=== PATIENT | female | born 2000 | race Caucasian/White ===

== ENCOUNTER 2022-01-04 20:58 | Emergency (ER) | payer MEDICAID, SELFPAY ==
[2022-01-04 21:22] VITALS: BP 120/60; PULSE 134; RESP 16; TEMP 37.2; O2SAT 97; BMI 20.5
--- NOTE | 2022-01-04 21:31 | W.ED.ABDPA2 ---
Documented by User: MERCEDES Rivas 01/05/22 00:33 HPI - Abdominal Pain General: Chief Complaint: Abdominal Pain Stated Complaint: RLQ/ FLANK PAIN Time Seen by Provider: 01/04/22 21:31 History of Present Illness: 21-year-old female comes in today with complaints of right lower quadrant abdominal pain. Patient has been ill since yesterday with pain radiating to her right lower quadrant. Patient has decreased appetite. Patient reports chills. Patient reports vomiting. Patient has no history of abdominal surgeries, has had a tonsillectomy, and history of asthma with albuterol use. Mother reports subjective fever. Patient reports pain improves with holding while movement and letting go blue worsens the pain. Patient's last menstrual cycle was on December 25, and patient denies any sexual activity. Patient denies any routine medications. MD elicited complaint: abdominal pain Pertinent past history: none Pain Consistency: intermittent Location: RLQ Severity: mild Quality: aching Exacerbating factors: movement Relieving factors: other (Holding pressure) Associated Symptoms: Reports chills, fever(s) and vomiting Review of Systems General: Reports: 10 or more systems reviewed and unremarkable except in HPI and below Const: Reports: fever(s) and chills ENMT: Denies: throat pain Card: Denies: chest pain Resp: Denies: dyspnea GI: Reports: abdominal pain and vomiting : Denies: difficulty voiding or vaginal discharge Skin/Breast: Denies: rash Physical Exam Const: COMMON NORMALS: alert HENMT: COMMON NORMALS: normocephalic HEAD & SCALP: normocephalic Neck/C-Spine: COMMON NORMALS: full ROM Resp: COMMON NORMALS: normal respiratory effort and clear to auscultation bilaterally AUSCULTATION: clear to auscultation bilaterally Cardio: COMMON NORMALS: regular rate and regular rhythm RATE: regular rate RHYTHM: regular rhythm GI: COMMON NORMALS: Soft to palpation AUSCULTATION: Yes normoactive bowel sounds PALPATION: Yes Soft to palpation, Yes Tenderness to palpation present (GI) Details: RLQ, No Guarding due to palpation present (GI) and No Rebound tenderness present : COMMON NORMALS: Yes no CVA tenderness BLADDER/KIDNEY EXAM: Yes no CVA tenderness Back/Pelvis: COMMON NORMALS: no CVA tenderness Extremity: COMMON NORMALS: full ROM and no pedal edema Neuro: SENSORIUM/ORIENTATION: Yes alert Psych: COMMON NORMALS: cooperative Skin: COMMON NORMALS: no rashes or lesions noted GENERAL SKIN EXAM: no rashes or lesions noted Course Vital Signs: Vital signs: Vital Signs Temperature 99.0 F 01/04/22 21:22 Pulse Rate 115 H 01/04/22 23:50 Respiratory Rate 16 01/04/22 23:50 Blood Pressure 144/85 01/04/22 23:50 Pulse Oximetry 95 01/04/22 23:50 MDM - Abdominal Pain Medical Decision Making 21-year-old female comes in today with complaints of right lower quadrant abdominal pain for the last 2 days. Patient did report some nausea and vomiting with the last episode this morning. Patient has had poor appetite throughout the day. Patient appears mildly unwell but not toxic. Abdomen is soft with some right lower quadrant abdominal tenderness, no guarding, no rebound tenderness. Differential diagnosis includes but not limited to appendicitis, gastroenteritis, mesenteric adenitis, ovarian cyst. Laboratory values noted potassium 3.1, sodium of 135, CBC unremarkable, urinalysis had white blood cells red blood cells but with significant amount of skin cells. CT of the abdomen pelvis noted no obvious appendicitis, prominent amount of mesenteric lymph nodes suggesting mesenteric lymphadenitis. I believe the patient probably has mesenteric adenitis and may be a mild urinary tract infection. Patient was given 1 g of Rocephin IV to cover urinary tract infection, encourage clear liquid diet and increasing activity as tolerated. Patient reported understanding along with parent. Lab Data : 01/04/22 21:43 01/04/22 21:43 Labs/Radiology: Radiology Impressions Abdomen/Pelvis CT 01/04/22 22:36 IMPRESSION: 1. The appendix is obscured. There is no secondary sign appendicitis. 2. Numerous mildly prominent mesenteric lymph nodes. This finding may be nonpathologic or could be related to mesenteric adenitis. Laboratory Results WBC 8.5 10^3/uL (4.5-13.0) 01/04/22 21:43 RBC 4.48 10^6/uL (4.1-5.3) 01/04/22 21:43 Hgb 13.4 g/dL (11.5-15.3) 01/04/22 21:43 Hct 40.0 % (37.0-47.0) 01/04/22 21:43 MCV 89.3 fl (81-99) 01/04/22 21:43 MCH 29.9 pg (28.0-34.0) 01/04/22 21:43 MCHC 33.5 g/dL (30.0-36.0) 01/04/22 21:43 RDW 13.6 % (12.1-15.1) 01/04/22 21:43 Plt Count 240 10^3/cmm (130-400) 01/04/22 21:43 MPV 10.3 fL (7.4-10.4) 01/04/22 21:43 Neut % (Auto) 73.6 % 01/04/22 21:43 Lymph % (Auto) 12.2 % 01/04/22 21:43 [place] % (Auto) 9.1 % 01/04/22 21:43 Eos % (Auto) 4.3 % 01/04/22 21:43 Baso % (Auto) 0.4 % 01/04/22 21:43 Neut # (Auto) 6.29 10^3/uL (1.8-8.0) 01/04/22 21:43 Lymph # (Auto) 1.0 10^3/uL (1.5-6.5) L 01/04/22 21:43 [place] # (Auto) 0.8 10^3/uL (0.2-0.9) 01/04/22 21:43 Eos # (Auto) 0.4 10^3/uL (0.0-0.8) 01/04/22 21:43 Baso # (Auto) 0.0 10^3/uL (0.0-0.1) 01/04/22 21:43 Nucleated RBC % (auto) 0 % 01/04/22 21:43 Nucleated RBCs # 0.0 /100WBC 01/04/22 21:43 Sodium 135 mmol/L (136-145) L 01/04/22 21:43 Potassium 3.1 mmol/L (3.5-5.1) L 01/04/22 21:43 Chloride 103 mmol/L (98-107) 01/04/22 21:43 Carbon Dioxide 19 mmol/L (22-29) L 01/04/22 21:43 Anion Gap 16.1 (5-19) 01/04/22 21:43 BUN 10 mg/dL (6-20) 01/04/22 21:43 Creatinine 0.7 mg/dL (0.5-0.9) 01/04/22 21:43 GFR Calculation 107.8 mL/min (90-130) 01/04/22 21:43 Glucose 105 mg/dL (65-115) 01/04/22 21:43 Calculated Osmolality 279 mOsm/kg (285-295) L 01/04/22 21:43 Calcium 9.3 mg/dL (8.5-10.5) 01/04/22 21:43 Total Bilirubin 0.4 mg/dL (0.15-1.2) 01/04/22 21:43 AST 14 U/L (0-32) 01/04/22 21:43 ALT 8 U/L (0-33) 01/04/22 21:43 Alkaline Phosphatase 64 IU/L (35-105) 01/04/22 21:43 Total Protein 7.1 g/dL (6.6-8.7) 01/04/22 21:43 Albumin 4.5 g/dL (3.5-5.2) 01/04/22 21:43 Globulin 2.6 g/dL (1.3-4.6) 01/04/22 21:43 Lipase 18 U/L (13-60) 01/04/22 21:43 HCG, Qual Negative (Negative) 01/04/22 21:43 Urine Color Yellow (Yellow) 01/04/22 23:11 Urine Appearance Sl cloudy (CLEAR) A 01/04/22 23:11 Urine pH 5 (5-7) 01/04/22 23:11 Ur Specific [place] 1.010 (1.005-1.030) 01/04/22 23:11 Urine Protein Neg (Negative) 01/04/22 23:11 Urine Glucose (UA) Norm (Normal) 01/04/22 23:11 Urine Ketones 3+ (Negative) H 01/04/22 23:11 Urine Blood Neg (Negative) 01/04/22 23:11 Urine Nitrate Negative (Negative) 01/04/22 23:11 Urine Bilirubin Neg (Negative) 01/04/22 23:11 Urine Urobilinogen Norm mg/dL (Negative) 01/04/22 23:11 Ur Leukocyte Esterase 1+ (Negative) H 01/04/22 23:11 Urine RBC 0-4 /hpf (0-2) H 01/04/22 23:11 Urine WBC 25-40 /hpf (0-5) H 01/04/22 23:11 Ur Squamous Epith Cells 15-25 /hpf (0-5) H 01/04/22 23:11 Amorphous Sediment Not Reportable 01/04/22 23:11 Urine Bacteria 2+ /hpf (NONE) H 01/04/22 23:11 Discharge Plan Discharge Patient Disposition: Home Clinical Impression: Acute mesenteric adenitis UTI (urinary tract infection) Qualifiers: Urinary tract infection type: acute cystitis Hematuria presence: without hematuria Qualified Code(s): N30.00 - Acute cystitis without hematuria Condition: Stable Discharge Orders: Discharge ED (Routine); Ordered 01/05/22 Ordered By: Antwon Mckoy Discharge Diet: Usual diet Discharge Activity: Increase activity as tolerated Patient Instructions: Mesenteric Adenitis (ED) Activity Restrictions/Additional Instructions: Encourage plenty of fluids. Use acetaminophen or ibuprofen to help with pain. Light activity. Monitor for worsening symptoms such as a high fever greater than 100.4, uncontrolled pain, blood in vomit or stool. Most often mesenteric adenitis will run its course within 1 week with improving pain and symptoms over that time period. Follow-up with primary care in 2 to 3 days. Return to emergency department for worsening symptoms or new concerns. Coding Level of Care Code ED Securities Research Analyst for Chg Fwd Exam Comprehensive Documented by User: Contreras Wan DO 01/05/22 01:21 HPI - Abdominal Pain General: Chief Complaint: Abdominal Pain Stated Complaint: RLQ/ FLANK PAIN Time Seen by Provider: 01/04/22 21:31 Course Vital Signs: Vital signs: Vital Signs Temperature 99.0 F 01/04/22 21:22 Pulse Rate 115 H 01/04/22 23:50 Respiratory Rate 16 01/04/22 23:50 Blood Pressure 144/85 01/04/22 23:50 Pulse Oximetry 95 01/04/22 23:50 MDM - Abdominal Pain Medical Decision Making 21-year-old female comes in today with complaints of right lower quadrant abdominal pain for the last 2 days. Patient did report some nausea and vomiting with the last episode this morning. Patient has had poor appetite throughout the day. Patient appears mildly unwell but not toxic. Abdomen is soft with some right lower quadrant abdominal tenderness, no guarding, no rebound tenderness. Differential diagnosis includes but not limited to appendicitis, gastroenteritis, mesenteric adenitis, ovarian cyst. Laboratory values noted potassium 3.1, sodium of 135, CBC unremarkable, urinalysis had white blood cells red blood cells but with significant amount of skin cells. CT of the abdomen pelvis noted no obvious appendicitis, prominent amount of mesenteric lymph nodes suggesting mesenteric lymphadenitis. I believe the patient probably has mesenteric adenitis and may be a mild urinary tract infection. Patient was given 1 g of Rocephin IV to cover urinary tract infection, encourage clear liquid diet and increasing activity as tolerated. Patient reported understanding along with parent. This patient was originally seen by MERCEDES Andino.? I agree with his history, evaluation, and treatment. Lab Data : 01/04/22 21:43 01/04/22 21:43 Labs/Radiology: Radiology Impressions Abdomen/Pelvis CT 01/04/22 22:36 IMPRESSION: 1. The appendix is obscured. There is no secondary sign appendicitis. 2. Numerous mildly prominent mesenteric lymph nodes. This finding may be nonpathologic or could be related to mesenteric adenitis. Laboratory Results WBC 8.5 10^3/uL (4.5-13.0) 01/04/22 21:43 RBC 4.48 10^6/uL (4.1-5.3) 01/04/22 21:43 Hgb 13.4 g/dL (11.5-15.3) 01/04/22 21:43 Hct 40.0 % (37.0-47.0) 01/04/22 21:43 MCV 89.3 fl (81-99) 01/04/22 21:43 MCH 29.9 pg (28.0-34.0) 01/04/22 21:43 MCHC 33.5 g/dL (30.0-36.0) 01/04/22 21:43 RDW 13.6 % (12.1-15.1) 01/04/22 21:43 Plt Count 240 10^3/cmm (130-400) 01/04/22 21:43 MPV 10.3 fL (7.4-10.4) 01/04/22 21:43 Neut % (Auto) 73.6 % 01/04/22 21:43 Lymph % (Auto) 12.2 % 01/04/22 21:43 [place] % (Auto) 9.1 % 01/04/22 21:43 Eos % (Auto) 4.3 % 01/04/22 21:43 Baso % (Auto) 0.4 % 01/04/22 21:43 Neut # (Auto) 6.29 10^3/uL (1.8-8.0) 01/04/22 21:43 Lymph # (Auto) 1.0 10^3/uL (1.5-6.5) L 01/04/22 21:43 [place] # (Auto) 0.8 10^3/uL (0.2-0.9) 01/04/22 21:43 Eos # (Auto) 0.4 10^3/uL (0.0-0.8) 01/04/22 21:43 Baso # (Auto) 0.0 10^3/uL (0.0-0.1) 01/04/22 21:43 Nucleated RBC % (auto) 0 % 01/04/22 21:43 Nucleated RBCs # 0.0 /100WBC 01/04/22 21:43 Sodium 135 mmol/L (136-145) L 01/04/22 21:43 Potassium 3.1 mmol/L (3.5-5.1) L 01/04/22 21:43 Chloride 103 mmol/L (98-107) 01/04/22 21:43 Carbon Dioxide 19 mmol/L (22-29) L 01/04/22 21:43 Anion Gap 16.1 (5-19) 01/04/22 21:43 BUN 10 mg/dL (6-20) 01/04/22 21:43 Creatinine 0.7 mg/dL (0.5-0.9) 01/04/22 21:43 GFR Calculation 107.8 mL/min (90-130) 01/04/22 21:43 Glucose 105 mg/dL (65-115) 01/04/22 21:43 Calculated Osmolality 279 mOsm/kg (285-295) L 01/04/22 21:43 Calcium 9.3 mg/dL (8.5-10.5) 01/04/22 21:43 Total Bilirubin 0.4 mg/dL (0.15-1.2) 01/04/22 21:43 AST 14 U/L (0-32) 01/04/22 21:43 ALT 8 U/L (0-33) 01/04/22 21:43 Alkaline Phosphatase 64 IU/L (35-105) 01/04/22 21:43 Total Protein 7.1 g/dL (6.6-8.7) 01/04/22 21:43 Albumin 4.5 g/dL (3.5-5.2) 01/04/22 21:43 Globulin 2.6 g/dL (1.3-4.6) 01/04/22 21:43 Lipase 18 U/L (13-60) 01/04/22 21:43 HCG, Qual Negative (Negative) 01/04/22 21:43 Urine Color Yellow (Yellow) 01/04/22 23:11 Urine Appearance Sl cloudy (CLEAR) A 01/04/22 23:11 Urine pH 5 (5-7) 01/04/22 23:11 Ur Specific [place] 1.010 (1.005-1.030) 01/04/22 23:11 Urine Protein Neg (Negative) 01/04/22 23:11 Urine Glucose (UA) Norm (Normal) 01/04/22 23:11 Urine Ketones 3+ (Negative) H 01/04/22 23:11 Urine Blood Neg (Negative) 01/04/22 23:11 Urine Nitrate Negative (Negative) 01/04/22 23:11 Urine Bilirubin Neg (Negative) 01/04/22 23:11 Urine Urobilinogen Norm mg/dL (Negative) 01/04/22 23:11 Ur Leukocyte Esterase 1+ (Negative) H 01/04/22 23:11 Urine RBC 0-4 /hpf (0-2) H 01/04/22 23:11 Urine WBC 25-40 /hpf (0-5) H 01/04/22 23:11 Ur Squamous Epith Cells 15-25 /hpf (0-5) H 01/04/22 23:11 Amorphous Sediment Not Reportable 01/04/22 23:11 Urine Bacteria 2+ /hpf (NONE) H 01/04/22 23:11 Discharge Plan Discharge Patient Disposition: Home Clinical Impression: Acute mesenteric adenitis UTI (urinary tract infection) Qualifiers: Urinary tract infection type: acute cystitis Hematuria presence: without hematuria Qualified Code(s): N30.00 - Acute cystitis without hematuria Condition: Stable Discharge Orders: Discharge ED (Routine); Ordered 01/05/22 Ordered By: Antwon Mckoy Discharge Diet: Usual diet Discharge Activity: Increase activity as tolerated Patient Instructions: Mesenteric Adenitis (ED) Activity Restrictions/Additional Instructions: Encourage plenty of fluids. Use acetaminophen or ibuprofen to help with pain. Light activity. Monitor for worsening symptoms such as a high fever greater than 100.4, uncontrolled pain, blood in vomit or stool. Most often mesenteric adenitis will run its course within 1 week with improving pain and symptoms over that time period. Follow-up with primary care in 2 to 3 days. Return to emergency department for worsening symptoms or new concerns. Coding Level of Care Code ED Securities Research Analyst for [employer] Fwd Exam Comprehensive
[2022-01-04 21:48] LABS: Basophils % 0.4 %; Eosinophils # 0.4 10^3/uL (0.0-0.8); Eosinophils % 4.3 %; Hemoglobin 13.4 g/dL (11.5-15.3); Lymphocytes % 12.2 %; Mean Corpuscular HGB Conc 33.5 g/dL (30.0-36.0); Mean Corpuscular Hemoglobin 29.9 pg (28.0-34.0); Mean Corpuscular Volume 89.3 fl (81-99); Mean Platelet Volume 10.3 fL (7.4-10.4); Monocytes # 0.8 10^3/uL (0.2-0.9); Monocytes % 9.1 %; Neutrophils # 6.29 10^3/uL (1.8-8.0); Neutrophils % 73.6 %; Nucleated Red Blood Cells % 0 %; Platelet Count 240 10^3/cmm (130-400); Red Blood Count 4.48 10^6/uL (4.1-5.3); Red Cell Distribution Width 13.6 % (12.1-15.1); White Blood Count 8.5 10^3/uL (4.5-13.0)
[2022-01-04 22:02] VITALS: RESP 16
[2022-01-04] MEDS: ondansetron 2 mg/ML SDV 2 mL 4 MG IVP (22:02)
[2022-01-04] MEDS: sodium chloride 0.9% 1,000 ML 999 ML IV (22:02)
[2022-01-04] MEDS: morphine 4 mg/mL SDV 1 mL IVP (22:02)
[2022-01-04 22:04] LABS: Alanine Aminotransferase 8 U/L (0-33); Albumin Level 4.5 g/dL (3.5-5.2); Alkaline Phosphatase 64 IU/L (35-105); Anion Gap 16.1 (5-19); Aspartate Amino Transferase 14 U/L (0-32); Blood Urea Nitrogen 10 mg/dL (6-20); Calcium 9.3 mg/dL (8.5-10.5); Carbon Dioxide 19 mmol/L (22-29); Chloride 103 mmol/L (98-107); Globulin 2.6 g/dL (1.3-4.6); Glomerular Filtration Rate 107.8 mL/min (90-130); Glucose 105 mg/dL (65-115); Lipase 18 U/L (13-60); Osmolality Calculated 279 mOsm/kg (285-295); Potassium 3.1 mmol/L (3.5-5.1); Sodium 135 mmol/L (136-145); Total Bilirubin 0.4 mg/dL (0.15-1.2); Total Protein 7.1 g/dL (6.6-8.7)
[2022-01-04 22:23] LABS: HCG, Serum Qual Negative (Negative)
--- NOTE | 2022-01-04 22:36 | CTR_ITS ---
PROCEDURE INFORMATION: Exam: CT Abdomen And Pelvis With Contrast Exam date and time: 01/04/2022 10:58 PM Age: 21 years old Clinical indication: Abdominal pain; Localized; Right lower quadrant (rlq); Patient HX: C/O rlq abd pain x 2 days TECHNIQUE: Imaging protocol: Computed tomography of the abdomen and pelvis with contrast. Radiation optimization: All CT scans at this facility use at least one of these dose optimization techniques: automated exposure control; mA and/or kV adjustment per patient size (includes targeted exams where dose is matched to clinical indication); or iterative reconstruction. Contrast material: OMNI 300; Contrast volume: 75 ml; Contrast route: INTRAVENOUS (IV); COMPARISON: No relevant prior studies available. RADIATION DOSE METRICS: Total DLP (mGy-cm): 982.6 FINDINGS: Lungs: Lung bases are clear. Liver: The liver is normal. Gallbladder and bile ducts: The gallbladder is normal. There is no biliary dilation. Pancreas: The pancreas is unremarkable. Spleen: The spleen is unremarkable. Adrenal glands: The adrenal glands are unremarkable. Kidneys and ureters: The kidneys are unremarkable. No hydronephrosis or stones. No ureteral dilation. Stomach and bowel: The stomach is unremarkable. The small bowel is nondilated. The colon is unremarkable. Appendix: The appendix is obscured. The cecum lies in the deep pelvis. Intraperitoneal space: There is no free air or significant intraperitoneal free fluid. Vasculature: The portal, splenic and superior mesenteric veins are patent. Lymph nodes: There are numerous mildly prominent mesenteric lymph nodes. No retroperitoneal, pelvic or inguinal lymphadenopathy. Urinary bladder: The urinary bladder is unremarkable. Reproductive: The uterus is unremarkable. There is no adnexal mass or large cyst. Bones/joints: Bones are unremarkable. Soft tissues: The abdominal wall is intact. CT/CT abdomen pelvis w con* [id number] IMPRESSION: 1. The appendix is obscured. There is no secondary sign appendicitis. 2. Numerous mildly prominent mesenteric lymph nodes. This finding may be nonpathologic or could be related to mesenteric adenitis.
[2022-01-04] MEDS: iohexol 300 mg/mL 100 mL Btl IV (22:57)
[2022-01-04 23:36] LABS: Add Urine Microscopic? YES; Bilirubin Urine Neg (Negative); Blood Urine Neg (Negative); Glucose Urine UA Norm (Normal); Ketones Urine 3+ (Negative); Leukocyte Esterase Urine 1+ (Negative); Nitrate Urine Negative (Negative); Protein Urine Neg (Negative); Urine Color Yellow (Yellow); Urobilinogen Urine Norm (Negative); pH Urine 5 (5-7)
[2022-01-04 23:41] LABS: Add Urine Culture? No; Bacteria Urine 2+ /hpf; RBC Urine 0-4 /hpf (0-2); Squamous Epithelial Cell Urine 15-25 /hpf (0-5); WBC Urine 25-40 /hpf (0-5)
[2022-01-04] MEDS: ketorolac 30 mg/mL INJ 15 MG IVP (23:48)
[2022-01-04 23:50] VITALS: BP 144/85; PULSE 115; RESP 16; O2SAT 95
[2022-01-05] MEDS: cefTRIAXone 1,000 MG in sodium chloride 0.9% (plus) 50 ML 100 MG IV (01:10)
[2022-01-05 01:56] VITALS: BP 135/78; PULSE 107; RESP 16; O2SAT 96
== END 2022-01-05 02:01 | disposition home or self-care (01) ==
PROVIDERS: Emergency Provider Nurse Practitioner Family
DX: N30.00 Acute cystitis without hematuria (principal); I88.0 Nonspecific mesenteric lymphadenitis
CPT/HCPCS: 74177; 80053; 81001; 83690; 84703; 85025; 96365; 96375; 99284; J0696; J1885; J2270; J2405; J7030; Q9967

== ENCOUNTER 2022-01-06 14:06 | Emergency (ER) | payer MEDICAID, SELFPAY ==
[2022-01-06 14:07] VITALS: BP 141/86; PULSE 99; RESP 14; TEMP 36.9; O2SAT 96; BMI 19.7
--- NOTE | 2022-01-06 14:13 | W.ED.ABDPA2 ---
HPI - Abdominal Pain General: Chief Complaint: Abdominal Pain Stated Complaint: ABD PAIN Time Seen by Provider: 01/06/22 14:12 Source: patient Mode of arrival: EMS History of Present Illness: 21-year-old female presents emergency room complaining of right-sided abdominal pain she was seen within the last 36 hours of mild UTI is also reporting some rectal bleeding since then she also has her period. She had a CT done at that time and a negative test. CT showed mesenteric lymphadenitis otherwise unremarkable. She not had any fever sweats or chills. MD elicited complaint: abdominal pain Pertinent past history: none Onset (ago): day(s) Pain Consistency: intermittent Location: RLQ Severity: moderate Quality: cramping Radiation: none Exacerbating factors: nothing Relieving factors: nothing Associated Symptoms: Reports change in stool character, hematochezia and nausea; Denies anorexia, belching, bloating, change in bowel habits, chills, coffee ground emesis, constipation, GI cramping, diarrhea, dyspepsia, dysuria, excessive flatus, fever(s), heartburn, hematuria, hematemesis, fecal incontinence, loose stools, melena, poor appetite, syncope and vomiting Review of Systems Const: Reports: change in appetite and malaise; Denies: fever(s) or chills Card: Denies: syncope GI: Reports: abdominal pain, nausea, change in stool character and hematochezia; Denies: vomiting, hematemesis, coffee ground emesis, heartburn, diarrhea, constipation, bloating, GI cramping, belching, excessive flatus, fecal incontinence, change in bowel habits or melena : Denies: flank pain, difficulty voiding, dysuria, urinary frequency, urinary urgency, urinary hesitancy or hematuria [facility] ED PFSH: Medical History (Updated 01/14/22 @ 06:03 by Sebastián Luz DO) No significant past medical history Surgical History (Updated 01/14/22 @ 06:03 by Sebastián Luz DO) No significant past surgical history Physical Exam Const: GENERAL APPEARANCE: cooperative and comfortable ORIENTATION/CONSCIOUSNESS: Yes awake, Yes oriented to person, Yes oriented to place and Yes oriented to time HENMT: COMMON NORMALS: normocephalic, atraumatic and hearing grossly normal bilaterally HEAD & SCALP: normocephalic and atraumatic Neck/C-Spine: COMMON NORMALS: no JVD Resp: COMMON NORMALS: normal respiratory effort, No retractions, No use of accessory muscles and clear to auscultation bilaterally AUSCULTATION: clear to auscultation bilaterally Cardio: COMMON NORMALS: no JVD, regular rate, regular rhythm and No murmurs present (Cardio) RATE: regular rate RHYTHM: regular rhythm GI: COMMON NORMALS: No hepatosplenomegaly present AUSCULTATION: Yes normoactive bowel sounds PALPATION: Yes Tenderness to palpation present (GI) (Mild right lower quadrant tenderness with no guarding or rebound), No Guarding due to palpation present (GI) and Yes No hepatosplenomegaly present Extremity: COMMON NORMALS: normal to inspection, capillary refill normal, no clubbing, cyanosis or edema, no calf tenderness and no pedal edema Neuro: SENSORIUM/ORIENTATION: Yes oriented to person, Yes oriented to place and Yes oriented to time Skin: COMMON NORMALS: no rashes or lesions noted GENERAL SKIN EXAM: no rashes or lesions noted Course Vital Signs: Vital signs: Vital Signs Temperature 98 F 01/06/22 17:29 Pulse Rate 71 01/06/22 17:29 Respiratory Rate 18 01/06/22 17:29 Blood Pressure 146/81 01/06/22 17:29 Pulse Oximetry 96 01/06/22 17:29 MDM - Abdominal Pain Medical Decision Making Started on Cipro recheck a CBC with your physician within the next 3 to 4 days to reevaluate hemoglobin of rectal bleeding is worse recheck sooner in the emergency room. Medical Records I reviewed the patient's medical records. Lab Data I reviewed the patient's lab results. : 01/06/22 14:15 01/06/22 14:15 Labs/Radiology: Laboratory Results WBC 9.9 10^3/uL (4.5-13.0) 01/06/22 14:15 RBC 4.48 10^6/uL (4.1-5.3) 01/06/22 14:15 Hgb 13.3 g/dL (11.5-15.3) 01/06/22 14:15 Hct 40.2 % (37.0-47.0) 01/06/22 14:15 MCV 89.7 fl (81-99) 01/06/22 14:15 MCH 29.7 pg (28.0-34.0) 01/06/22 14:15 MCHC 33.1 g/dL (30.0-36.0) 01/06/22 14:15 RDW 13.5 % (12.1-15.1) 01/06/22 14:15 Plt Count 285 10^3/cmm (130-400) 01/06/22 14:15 MPV 10.4 fL (7.4-10.4) 01/06/22 14:15 Neut % (Auto) 69.6 % 01/06/22 14:15 Lymph % (Auto) 14.2 % 01/06/22 14:15 [place] % (Auto) 7.4 % 01/06/22 14:15 Eos % (Auto) 8.4 % 01/06/22 14:15 Baso % (Auto) 0.2 % 01/06/22 14:15 Neut # (Auto) 6.86 10^3/uL (1.8-8.0) 01/06/22 14:15 Lymph # (Auto) 1.4 10^3/uL (1.5-6.5) L 01/06/22 14:15 [place] # (Auto) 0.7 10^3/uL (0.2-0.9) 01/06/22 14:15 Eos # (Auto) 0.8 10^3/uL (0.0-0.8) 01/06/22 14:15 Baso # (Auto) 0.0 10^3/uL (0.0-0.1) 01/06/22 14:15 Nucleated RBC % (auto) 0 % 01/06/22 14:15 Nucleated RBCs # 0.0 /100WBC 01/06/22 14:15 Sodium 137 mmol/L (136-145) 01/06/22 14:15 Potassium 4.1 mmol/L (3.5-5.1) 01/06/22 14:15 Chloride 105 mmol/L (98-107) 01/06/22 14:15 Carbon Dioxide 19 mmol/L (22-29) L 01/06/22 14:15 Anion Gap 17.1 (5-19) 01/06/22 14:15 BUN 7 mg/dL (6-20) 01/06/22 14:15 Creatinine 0.7 mg/dL (0.5-0.9) 01/06/22 14:15 GFR Calculation 107.8 mL/min (90-130) 01/06/22 14:15 Glucose 83 mg/dL (65-115) 01/06/22 14:15 Calculated Osmolality 281 mOsm/kg (285-295) L 01/06/22 14:15 Calcium 9.2 mg/dL (8.5-10.5) 01/06/22 14:15 Total Bilirubin 0.3 mg/dL (0.15-1.2) 01/06/22 14:15 AST 19 U/L (0-32) 01/06/22 14:15 ALT 9 U/L (0-33) 01/06/22 14:15 Alkaline Phosphatase 58 IU/L (35-105) 01/06/22 14:15 Total Protein 6.6 g/dL (6.6-8.7) 01/06/22 14:15 Albumin 4.3 g/dL (3.5-5.2) 01/06/22 14:15 Globulin 2.3 g/dL (1.3-4.6) 01/06/22 14:15 Lipase 21 U/L (13-60) 01/06/22 14:15 Urine Color Yellow (Yellow) 01/06/22 15:15 Urine Appearance Clear (CLEAR) 01/06/22 15:15 Urine pH 5 (5-7) 01/06/22 15:15 Ur Specific [place] 1.015 (1.005-1.030) 01/06/22 15:15 Urine Protein Neg (Negative) 01/06/22 15:15 Urine Glucose (UA) Norm (Normal) 01/06/22 15:15 Urine Ketones 3+ (Negative) H 01/06/22 15:15 Urine Blood 2+ (Negative) H 01/06/22 15:15 Urine Nitrate Negative (Negative) 01/06/22 15:15 Urine Bilirubin Neg (Negative) 01/06/22 15:15 Urine Urobilinogen Norm mg/dL (Negative) 01/06/22 15:15 Ur Leukocyte Esterase Negative (Negative) 01/06/22 15:15 Urine RBC 0-4 /hpf (0-2) H 01/06/22 15:15 Urine WBC Rare /hpf (0-5) 01/06/22 15:15 Ur Squamous Epith Cells Rare /hpf (0-5) 01/06/22 15:15 Amorphous Sediment Not Reportable 01/06/22 15:15 Urine Bacteria Trace /hpf (NONE) 01/06/22 15:15 Urine Mucus Trace /hpf 01/06/22 15:15 Discharge Plan Discharge Patient Disposition: Home Clinical Impression: Colitis, Acute mesenteric adenitis Condition: Stable Prescriptions: New hydrocodone-acetaminophen 5-325 mg tablet 1 tab PO Q6H PRN (Reason: pain) Qty: 12 0RF Zofran 4 mg tablet 4 mg PO Q6H PRN (Reason: nausea and vomiting) Qty: 12 0RF ciprofloxacin HCl 500 mg tablet 500 mg PO BID Qty: 14 0RF Discharge Orders: Discharge ED (Routine); Ordered 01/06/22 Ordered By: Sebastián Luz Discharge Diet: Clear Liquid Discharge Activity: Increase activity as tolerated Patient Instructions: Opioid Safety Activity Restrictions/Additional Instructions: Liquid diet for 24 to 48 hours and advance as tolerated. Follow-up with primary care physician within the next 3 to 4 days to recheck a CBC you should also have a colonoscopy at some point in the next 6 to 8 weeks. Coding Level of Care Code ED Battery Service Technician for Chg Fwd Exam Comprehensive
[2022-01-06 14:25] LABS: Basophils % 0.2 %; Eosinophils # 0.8 10^3/uL (0.0-0.8); Eosinophils % 8.4 %; Hematocrit 40.2 % (37.0-47.0); Hemoglobin 13.3 g/dL (11.5-15.3); Lymphocytes # 1.4 10^3/uL (1.5-6.5); Lymphocytes % 14.2 %; Mean Corpuscular HGB Conc 33.1 g/dL (30.0-36.0); Mean Corpuscular Hemoglobin 29.7 pg (28.0-34.0); Mean Corpuscular Volume 89.7 fl (81-99); Mean Platelet Volume 10.4 fL (7.4-10.4); Monocytes # 0.7 10^3/uL (0.2-0.9); Monocytes % 7.4 %; Neutrophils # 6.86 10^3/uL (1.8-8.0); Neutrophils % 69.6 %; Nucleated Red Blood Cells % 0 %; Platelet Count 285 10^3/cmm (130-400); Red Blood Count 4.48 10^6/uL (4.1-5.3); Red Cell Distribution Width 13.5 % (12.1-15.1); White Blood Count 9.9 10^3/uL (4.5-13.0)
[2022-01-06 14:28] VITALS: RESP 18; O2SAT 97
[2022-01-06] MEDS: morphine 4 mg/mL SDV 1 mL 2 MG IVP (14:28)
[2022-01-06] MEDS: ketorolac 30 mg/mL INJ IVP (14:29)
[2022-01-06] MEDS: ondansetron 2 mg/ML SDV 2 mL 4 MG IVP (14:29)
[2022-01-06] MEDS: lactated ringers 1,000 ML 999 ML IV ×3 (14:33→17:05)
[2022-01-06 14:44] LABS: Alanine Aminotransferase 9 U/L (0-33); Albumin Level 4.3 g/dL (3.5-5.2); Alkaline Phosphatase 58 IU/L (35-105); Blood Urea Nitrogen 7 mg/dL (6-20); Calcium 9.2 mg/dL (8.5-10.5); Carbon Dioxide 19 mmol/L (22-29); Chloride 105 mmol/L (98-107); Globulin 2.3 g/dL (1.3-4.6); Glomerular Filtration Rate 107.8 mL/min (90-130); Glucose 83 mg/dL (65-115); Lipase 21 U/L (13-60); Osmolality Calculated 281 mOsm/kg (285-295); Sodium 137 mmol/L (136-145); Total Bilirubin 0.3 mg/dL (0.15-1.2); Total Protein 6.6 g/dL (6.6-8.7)
[2022-01-06 14:45] LABS: Anion Gap 17.1 (5-19); Aspartate Amino Transferase 19 U/L (0-32); Potassium 4.1 mmol/L (3.5-5.1)
[2022-01-06 15:46] VITALS: BP 113/70; PULSE 80; RESP 16; O2SAT 96
--- NOTE | 2022-01-06 16:17 | PC.NURSE ---
Reports her menstrual cycle is regular & last cycle was 16th. Attempted to straight cath for urine & unable to place cath. Appears to be vaginal bleeding rather than urinary or rectal.
[2022-01-06 16:21] LABS: Urine Appearance Clear (CLEAR); Urine Color Yellow (Yellow); pH Urine 5 (5-7)
[2022-01-06 16:22] LABS: Add Urine Culture? No; Add Urine Microscopic? YES; Bacteria Urine TRACE /hpf; Bilirubin Urine Neg (Negative); Blood Urine 2+ (Negative); Glucose Urine UA Norm (Normal); Ketones Urine 3+ (Negative); Leukocyte Esterase Urine Negative (Negative); Mucus Urine TRACE /hpf; Nitrate Urine Negative (Negative); Protein Urine Neg (Negative); RBC Urine 0-4 /hpf (0-2); Specific Gravity, Urine 1.015 (1.005-1.030); Squamous Epithelial Cell Urine RARE /hpf (0-5); Urobilinogen Urine Norm (Negative); WBC Urine RARE /hpf (0-5)
[2022-01-06 17:26] VITALS: RESP 16
[2022-01-06] MEDS: morphine 4 mg/mL SDV 1 mL IVP (17:26)
[2022-01-06 17:29] VITALS: BP 146/81; PULSE 71; RESP 18; TEMP 36.6; O2SAT 96
== END 2022-01-06 18:18 | disposition home or self-care (01) ==
PROVIDERS: Emergency Provider Family Medicine; PCP Nurse Practitioner Family
DX: K52.9 Noninfective gastroenteritis and colitis, unspecified (principal); I88.0 Nonspecific mesenteric lymphadenitis
CPT/HCPCS: 80053; 81001; 83690; 85025; 96361; 96374; 96375; 96376; 99284; J1885; J2270; J2405

== ENCOUNTER 2022-03-01 20:14 | Emergency (ER) | payer MEDICAID, SELFPAY ==
[2022-03-01 20:21] VITALS: BP 121/79; PULSE 88; RESP 14; TEMP 36.7; O2SAT 99
--- NOTE | 2022-03-01 20:33 | XRR_ITS ---
PROCEDURE INFORMATION: Exam: XR Chest Exam date and time: 03/01/2022 8:50 PM Age: 22 years old Clinical indication: Dyspnea; Additional info: SOB TECHNIQUE: Imaging protocol: XR of the chest. Views: 1 view. COMPARISON: CT abdomen pelvis w con* [id number] 01/04/2022 10:58 PM FINDINGS: Lungs: Unremarkable. No consolidation. Pleural spaces: Unremarkable. No pleural effusion. No pneumothorax. Heart/Mediastinum: Unremarkable. No cardiomegaly. Bones/joints: Mild thoracic curvature. XR/XR chest 1V portable [id number] IMPRESSION: No acute findings.
--- NOTE | 2022-03-01 20:33 | ED_ITS ---
HPI - Animal Bite General: Chief Complaint: Animal Bite Stated Complaint: SNAKE Bite on rt hand Time Seen by Provider: 03/01/22 20:30 Source: patient Mode of arrival: ambulatory Limitations: no limitations History of Present Illness: 22-year-old female states that she is bitten by a small water moccasin roughly an hour before arrival she states that it bit her on the right index finger she had some pain at the finger no swelling or redness. States that she got worked up and had a little dyspnea as well is feeling improved currently no vomiting no diarrhea Associated symptoms: Deny chills, fever(s) or headache(s) Review of Systems Const: Denies: fever(s), chills, body aches or change in appetite Eyes: Denies: blurry vision or eye discomfort ENMT: Denies: throat pain or dental pain Card: Denies: chest pain Resp: Reports: dyspnea GI: Denies: abdominal pain, nausea, vomiting or diarrhea : Denies: dysuria Musc: Reports: extremity pain Skin/Breast: Denies: rash Neuro: Denies: headache(s) Psych: Denies: depression Mitul/Lymph: Denies: easy bruising All/Imm: Denies: urticaria PFSH ED PFSH: Medical History No significant past medical history Surgical History No significant past surgical history Social History Smoking and tobacco status: current every day smoker (vapes) Physical Exam Const: COMMON NORMALS: no acute distress, patient oriented x3 and healthy appearing HENMT: COMMON NORMALS: normocephalic and atraumatic HEAD & SCALP: normocephalic and atraumatic Eye: COMMON NORMALS: Equal, round and reactive pupils present and EOMs intact bilaterally PUPIL: Yes Equal, round and reactive pupils present Neck/C-Spine: COMMON NORMALS: full ROM and supple Chest: COMMONS NORMALS: normal inspection of the chest and normal palpation of entire chest wall Resp: COMMON NORMALS: normal respiratory effort, No retractions, No use of accessory muscles and clear to auscultation bilaterally AUSCULTATION: clear to auscultation bilaterally Cardio: COMMON NORMALS: regular rate, regular rhythm and No murmurs present (Cardio) RATE: regular rate RHYTHM: regular rhythm GI: COMMON NORMALS: Normal to inspection, nondistended, normoactive bowel raz nds present, Soft to palpation, non-tender and no masses PALPATION: Yes Soft to palpation Extremity: COMMON NORMALS: normal to inspection and full ROM NARRATIVE EXTREMITY EXAM: Patient does have some pain to her right index finger and not able to see any puncture wound or swelling no redness or streaking at this time Neuro: COMMON NORMALS: patient oriented x3, moves all extremities and no focal motor deficits Psych: COMMON NORMALS: mental status grossly normal, Normal thought process present and cooperative THOUGHT PROCESS: Normal thought process present Skin: COMMON NORMALS: no rashes or lesions noted and no wounds GENERAL SKIN EXAM: no rashes or lesions noted Course Vital Signs: Vital signs: Vital Signs Temperature 98.1 F 03/01/22 20:21 Pulse Rate 88 03/01/22 20:21 Respiratory Rate 14 03/01/22 20:21 Blood Pressure 121/79 03/01/22 20:21 Pulse Oximetry 99 03/01/22 20:21 MDM - Animal Bite Medical Decision Making Patient presents with a index bite to her finger is likely a dry bite and not able to see any puncture wounds and she has no swelling was observed here 2 and half hours after the bite still though swelling blood works normal as well she is stable for discharge follow-up PCP return if worsening she understands agrees to plan. Lab Data : 03/01/22 20:45 03/01/22 20:45 Laboratory Results WBC 9.6 10^3/uL (4.5-13.0) 03/01/22 20:45 RBC 4.39 10^6/uL (4.1-5.3) 03/01/22 20:45 Hgb 13.3 g/dL (11.5-15.3) 03/01/22 20:45 Hct 39.5 % (37.0-47.0) 03/01/22 20:45 MCV 90.0 fl (81-99) 03/01/22 20:45 MCH 30.3 pg (28.0-34.0) 03/01/22 20:45 MCHC 33.7 g/dL (30.0-36.0) 03/01/22 20:45 RDW 13.2 % (12.1-15.1) 03/01/22 20:45 Plt Count 297 10^3/cmm (130-400) 03/01/22 20:45 MPV 10.1 fL (7.4-10.4) 03/01/22 20:45 Neut % (Auto) 47.3 % 03/01/22 20:45 Lymph % (Auto) 33.0 % 03/01/22 20:45 [place] % (Auto) 7.3 % 03/01/22 20:45 Eos % (Auto) 11.7 % 03/01/22 20:45 Baso % (Auto) 0.6 % 03/01/22 20:45 Neut # (Auto) 4.54 10^3/uL (1.8-8.0) 03/01/22 20:45 Lymph # (Auto) 3.2 10^3/uL (1.5-6.5) 03/01/22 20:45 [place] # (Auto) 0.7 10^3/uL (0.2-0.9) 03/01/22 20:45 Eos # (Auto) 1.1 10^3/uL (0.0-0.8) H 03/01/22 20:45 Baso # (Auto) 0.1 10^3/uL (0.0-0.1) 03/01/22 20:45 Nucleated RBC % (auto) 0 % 03/01/22 20:45 Nucleated RBCs # 0.0 /100WBC 03/01/22 20:45 PT 13.80 SECONDS (12.1-14.9) 03/01/22 20:45 INR 1.03 (0.8-1.2) 03/01/22 20:45 Sodium 138 mmol/L (136-145) 03/01/22 20:45 Potassium 3.7 mmol/L (3.5-5.1) 03/01/22 20:45 Chloride 104 mmol/L (98-107) 03/01/22 20:45 Carbon Dioxide 23 mmol/L (22-29) 03/01/22 20:45 Anion Gap 14.7 (5-19) 03/01/22 20:45 BUN 9 mg/dL (6-20) 03/01/22 20:45 Creatinine 0.7 mg/dL (0.5-0.9) 03/01/22 20:45 GFR Calculation 106.7 mL/min (90-130) 03/01/22 20:45 Glucose 85 mg/dL (65-115) 03/01/22 20:45 Calculated Osmolality 284 mOsm/kg (285-295) L 03/01/22 20:45 Calcium 9.5 mg/dL (8.5-10.5) 03/01/22 20:45 Total Bilirubin 0.2 mg/dL (0.15-1.2) 03/01/22 20:45 AST 14 U/L (0-32) 03/01/22 20:45 ALT 7 U/L (0-33) 03/01/22 20:45 Alkaline Phosphatase 58 IU/L (35-105) 03/01/22 20:45 Total Protein 6.9 g/dL (6.6-8.7) 03/01/22 20:45 Albumin 4.5 g/dL (3.5-5.2) 03/01/22 20:45 Globulin 2.4 g/dL (1.3-4.6) 03/01/22 20:45 Discharge Plan Discharge Patient Disposition: Home Clinical Impression: Snake bite Condition: Stable Prescriptions: New Naprosyn 500 mg tablet 500 mg PO BID PRN (Reason: pain) Qty: 20 0RF No Action Primatene Mist 0.125 mg/actuation HFA aerosol inhaler 1 puff inhalation Q4H PRN0RF Rx Instructions: may repeat once after 1 minute; do not exceed 8 inhalations per 24 hrs albuterol sulfate [ProAir HFA] 90 mcg/actuation HFA aerosol inhaler 2 puff inhalation QID PRN (Reason: shortness of breath or wheezing) Qty: 8.5 6RF budesonide-formoterol [Symbicort] 160-4.5 mcg/actuation HFA aerosol inhaler 2 puff inhalation BID Qty: 10.2 6RF montelukast [Singulair] 10 mg tablet 10 mg PO DAILY 30 Days Qty: 30 3RF Zyrtec 10 mg capsule 10 mg PO DAILY 90 Days Qty: 90 3RF Discharge Orders: Discharge ED (Routine); Ordered 03/01/22 Ordered By: Archana Jefferson Referrals: Nubia Timmons NP [Primary Care Provider] - 1-3 days Discharge Diet: Advance as tolerated Discharge Activity: Resume usual activity Patient Instructions: Snake Bite (ED) Coding Level of Care Code ED Optometric Assistant for Chg Fwd Exam Comprehensive
[2022-03-01] MEDS: HYDROcodone-acetaminophen 5-325 mg Tablet 1 TAB PO (20:38)
[2022-03-01 20:56] LABS: Basophils # 0.1 10^3/uL (0.0-0.1); Basophils % 0.6 %; Eosinophils # 1.1 10^3/uL (0.0-0.8); Eosinophils % 11.7 %; Hematocrit 39.5 % (37.0-47.0); Hemoglobin 13.3 g/dL (11.5-15.3); Lymphocytes # 3.2 10^3/uL (1.5-6.5); Mean Corpuscular HGB Conc 33.7 g/dL (30.0-36.0); Mean Corpuscular Hemoglobin 30.3 pg (28.0-34.0); Mean Platelet Volume 10.1 fL (7.4-10.4); Monocytes # 0.7 10^3/uL (0.2-0.9); Monocytes % 7.3 %; Neutrophils # 4.54 10^3/uL (1.8-8.0); Neutrophils % 47.3 %; Nucleated Red Blood Cells % 0 %; Platelet Count 297 10^3/cmm (130-400); Red Blood Count 4.39 10^6/uL (4.1-5.3); Red Cell Distribution Width 13.2 % (12.1-15.1); White Blood Count 9.6 10^3/uL (4.5-13.0)
[2022-03-01 21:08] LABS: INR 1.03 (0.8-1.2)
[2022-03-01 21:12] LABS: Alanine Aminotransferase 7 U/L (0-33); Albumin Level 4.5 g/dL (3.5-5.2); Alkaline Phosphatase 58 IU/L (35-105); Anion Gap 14.7 (5-19); Aspartate Amino Transferase 14 U/L (0-32); Blood Urea Nitrogen 9 mg/dL (6-20); Calcium 9.5 mg/dL (8.5-10.5); Carbon Dioxide 23 mmol/L (22-29); Chloride 104 mmol/L (98-107); Globulin 2.4 g/dL (1.3-4.6); Glomerular Filtration Rate 106.7 mL/min (90-130); Glucose 85 mg/dL (65-115); Osmolality Calculated 284 mOsm/kg (285-295); Potassium 3.7 mmol/L (3.5-5.1); Sodium 138 mmol/L (136-145); Total Bilirubin 0.2 mg/dL (0.15-1.2); Total Protein 6.9 g/dL (6.6-8.7)
[2022-03-01] MEDS: ondansetron 2 mg/ML SDV 2 mL 4 MG IVP (21:39)
[2022-03-01 21:54] VITALS: BP 119/74; PULSE 74; RESP 16; TEMP 36.7; O2SAT 99
== END 2022-03-01 21:56 | disposition home or self-care (01) ==
PROVIDERS: Emergency Provider Emergency Medicine; PCP Nurse Practitioner Family
DX: T63.091A Toxic effect of venom of other snake, accidental (unintentional), initial encounter (principal)
CPT/HCPCS: 71045; 80053; 85025; 85610; 96374; 99283; J2405

== ENCOUNTER 2023-06-20 14:23 | Emergency (ER) | payer OTHER, SELFPAY ==
[2023-06-20 14:36] VITALS: BP 99/70; PULSE 97; RESP 16; TEMP 36.8; O2SAT 97; BMI 22.3
[2023-06-20] MEDS: ondansetron 2 mg/ML SDV 2 mL 4 MG IVP (16:39)
[2023-06-20] MEDS: ketorolac 30 mg/mL INJ 15 MG IVP (16:40)
--- NOTE | 2023-06-20 16:40 | ED_ITS ---
HPI - Abdominal Pain General: Chief Complaint: Abdominal Pain Stated Complaint: constipation Time Seen by Provider: 06/20/23 15:17 History of Present Illness: 23-year-old female presents the emergency department complaining of constipation . She feels bloated and has had intermittent abdominal pain. She took Ex-Lax (2 servings) yesterday. She had a small liquid bowel movement this morning. She is thrown up a few times over the last 4 days and states that she thinks it is poop that she threw up. She denies any history of abdominal surgeries. She denies any dysuria or hematuria. Nothing she can think of makes it better or worse. She does endorse that it is constant. Associated Symptoms: Reports bloating, constipation, GI cramping, diarrhea, nausea and vomiting; Denies chills, dysuria, fever(s), hematochezia, melena and syncope Related Data: Date of Last Menstrual Period: 05/27/23 Review of Systems General: Reports: 10 or more systems reviewed and unremarkable except in HPI and below Const: Denies: fever(s), chills or body aches Eyes: Denies: change in vision ENMT: Denies: throat pain Card: Denies: chest pain, edema or syncope Resp: Denies: dyspnea or productive cough GI: Reports: abdominal pain, nausea, vomiting, diarrhea, constipation, bloating and GI cramping; Denies: pain on defecation, rectal pain, rectal swelling, hematochezia, melena, mucus in stool or steatorrhea : Denies: flank pain, dysuria or urinary frequency Musc: Denies: neck pain, back pain, extremity pain or extremity swelling Skin/Breast: Denies: rash or erythema Neuro: Denies: headache(s), numbness in extremities, weakness in extremities, lack of coordination or difficulty walking PFS ED PFSH: Medical History No significant past medical history Surgical History No significant past surgical history Social History Smoking and tobacco status: current every day smoker (vapes) Female Reproductive History: Date of last menstrual period: 05/27/23 Physical Exam Narrative: EXAM NARRATIVE: Patient is a poor historian. She is laying left lateral decubitus. She does not appear in distress. She was almost asleep when I entered. She appears well-nourished. Const: COMMON NORMALS: well nourished EXAM LIMITATIONS: other limitations (Limited historian); no altered mental status HENMT: COMMON NORMALS: normocephalic, atraumatic and external ears normal HEAD & SCALP: normocephalic and atraumatic EXTERNAL EAR: Yes external ears normal MOUTH: no muffled voice Eye: COMMON NORMALS: EOMs intact bilaterally, conjunctivae normal and no scleral icterus CONJUNCTIVA: Yes conjunctivae normal Neck/C-Spine: COMMON NORMALS: no JVD GENERAL: Yes normal visual inspection and Yes trachea midline Resp: COMMON NORMALS: normal respiratory effort and No use of accessory muscles Cardio: COMMON NORMALS: no JVD, regular rate and regular rhythm RATE: regular rate RHYTHM: regular rhythm GI: COMMON NORMALS: Soft to palpation and non-tender INSPECTION: Yes normal to inspection and No Fluid wave present AUSCULTATION: Yes Hypoactive bowel sounds present PALPATION: Yes Soft to palpation, No Firmness to palpation present (GI), No Tenderness to palpation present (GI), No Guarding due to palpation present (GI), No Rigid due to palpation, No Ascites present, No Rebound tenderness present and Yes Other GI palpation findings present (Negative McBurney's point tenderness, negative heel strike) PERCUSSION: dullness to percussion and no fluid wave Extremity: COMMON NORMALS: normal to inspection Neuro: COMMON NORMALS: moves all extremities, no focal motor deficits and no sensory deficits noted SPEECH: speech normal Psych: COMMON NORMALS: mental status grossly normal, Normal thought process present, cooperative, normal affect and speech normal SPEECH: Yes normal speech THOUGHT PROCESS: Normal thought process present Skin: COMMON NORMALS: no rashes or lesions noted, turgor normal and no jaundice GENERAL SKIN EXAM: no rashes or lesions noted and turgor normal Course Vital Signs: Vital signs: Vital Signs Temperature 98.2 F 06/20/23 14:36 Pulse Rate 97 06/20/23 14:36 Respiratory Rate 16 06/20/23 14:36 Blood Pressure 99/70 06/20/23 14:36 Pulse Oximetry 97 06/20/23 14:36 Oxygen Delivery Me thod Room Air 06/20/23 14:36 MDM - Abdominal Pain Medical Decision Making 23-year-old female with report of 4 days of abdominal pain. Patient believes it is due to constipation. She does have hypoactive bowel sounds and dullness to percussion. She has a restricted affect. No peritoneal signs. Low suspicion for acute abdomen. Will obtain CBC, CMP, UA, UPT. Patient believes that she has thrown up stool. Her abdomen is not tympanitic to percussion nor is it distended. I have a hard time believing that this is a fulminant bowel obstruction. I will obtain an upright KUB to further evaluate stool burden and gas pattern. Update The patient's white blood cell count is 11.5. I went ahead and changed her KUB to a CT scan of the abdomen and pelvis. The CT scan does show some mild mural thickening of the colon suggestive of colitis. No other abnormalities demonstrated. I went back and spoke with the patient and family. Patient was more talkative this time and tells me that she frequently has abdominal pain. She also tells me that she actually had a colonoscopy several years ago. She has not been diagnosed with inflammatory bowel disease, any food allergy, or any specific etiology. She does have similar symptoms to a family member who has IBS but is not diagnosed. CRP returned normal at 3 I explained the colitis diagnosis. I explained the potential causes including infectious,allergic/ autoimmune, other inflammatory, etc. I gave the patient the option of doing a course of antibiotics versus watchful waiting with bland diet. She is having minimal vomiting and diarrhea and does not want to wipe out her gut lorenzo. She has chosen to avoid antibiotics at this time. Therefore, I will go ahead and prescribe Zofran and Bentyl and have her follow-up with PCP Lab Data 06/20/23 16:35 06/20/23 16:35 Labs/Radiology: Radiology Impressions Abdomen/Pelvis CT 06/20/23 17:11 IMPRESSION: 1. Mild mural thickening noted of the colon, suspicious for nonspecific colitis. This finding is new when compared to 01/04/2022. 2. No acute abnormality of the solid organs demonstrated. Laboratory Results WBC 11.47 10^3/uL (3.29-11.43) H 06/20/23 16:35 RBC 4.80 10^6/uL (3.85-5.65) 06/20/23 16:35 Hgb 14.40 g/dL (11.27-16.99) 06/20/23 16:35 Hct 42.7 % (36-47) 06/20/23 16:35 MCV 89.0 fl (85-98) 06/20/23 16:35 MCH 30.0 pg (27-33) 06/20/23 16:35 MCHC 33.7 g/dL (30-55) 06/20/23 16:35 RDW 12.6 % (12.1-15.1) 06/20/23 16:35 Plt Count 319 10^3/cmm (157-399) 06/20/23 16:35 MPV 9.3 fL (7.4-10.4) 06/20/23 16:35 Neut % (Auto) 63.9 % 06/20/23 16:35 Lymph % (Auto) 21.7 % 06/20/23 16:35 [place] % (Auto) 5.8 % 06/20/23 16:35 Eos % (Auto) 8.2 % 06/20/23 16:35 Baso % (Auto) 0.2 % 06/20/23 16:35 Neut # (Auto) 7.34 10^3/uL (1.8-7.7) 06/20/23 16:35 Lymph # (Auto) 2.5 10^3/uL (0.8-4.8) 06/20/23 16:35 [place] # (Auto) 0.7 10^3/uL (0.2-0.9) 06/20/23 16:35 Eos # (Auto) 0.9 10^3/uL (0.0-0.8) H 06/20/23 16:35 Baso # (Auto) 0.0 10^3/uL (0.0-0.1) 06/20/23 16:35 Nucleated RBC % (auto) 0 % 06/20/23 16:35 Nucleated RBCs # 0.0 /100WBC 06/20/23 16:35 Sodium 137 mmol/L (136-145) 06/20/23 16:35 Potassium 4.1 mmol/L (3.5-5.1) 06/20/23 16:35 Chloride 102 mmol/L (98-107) 06/20/23 16:35 Carbon Dioxide 25 mmol/L (22-29) 06/20/23 16:35 Anion Gap 14.1 (5-19) 06/20/23 16:35 BUN 9 mg/dL (6-20) 06/20/23 16:35 Creatinine 0.7 mg/dL (0.5-0.9) 06/20/23 16:35 GFR Calculation 105.6 mL/min (90-130) 06/20/23 16:35 Glucose 94 mg/dL (65-115) 06/20/23 16:35 Calculated Osmolality 282 mOsm/kg (285-295) L 06/20/23 16:35 Calcium 9.3 mg/dL (8.5-10.5) 06/20/23 16:35 Total Bilirubin 0.3 mg/dL (0.15-1.2) 06/20/23 16:35 AST 14 U/L (0-32) 06/20/23 16:35 ALT 8 U/L (0-33) 06/20/23 16:35 Alkaline Phosphatase 65 U/L (35-105) 06/20/23 16:35 C-Reactive Protein 3.0 mg/L (0.0-4.9) 06/20/23 16:35 Total Protein 7.0 g/dL (6.6-8.7) 06/20/23 16:35 Albumin 4.7 g/dL (3.5-5.2) 06/20/23 16:35 Globulin 2.3 g/dL (1.3-4.6) 06/20/23 16:35 HCG, Qual Negative (Negative) 06/20/23 16:40 Urine Color Straw (Yellow) 06/20/23 16:40 Urine Appearance Clear (CLEAR) 06/20/23 16:40 Urine pH 8 (5-7) H 06/20/23 16:40 Ur Specific [place] 1.005 (1.005-1.030) 06/20/23 16:40 Urine Protein Neg (Negative) 06/20/23 16:40 Urine Glucose (UA) Norm (Normal) 06/20/23 16:40 Urine Ketones Negative (Negative) 06/20/23 16:40 Urine Blood Neg (Negative) 06/20/23 16:40 Urine Nitrate Negative (Negative) 06/20/23 16:40 Urine Bilirubin Neg (Negative) 06/20/23 16:40 Prot Sulfosalicylic Acd Negative (Negative) 06/20/23 16:40 Urine Urobilinogen Norm mg/dL (Negative) 06/20/23 16:40 Ur Leukocyte Esterase 1+ (Negative) H 06/20/23 16:40 Urine RBC None /hpf (0-2) 06/20/23 16:40 Urine WBC 5-10 /hpf (0-5) H 06/20/23 16:40 Ur Squamous Epith Cells 5-10 /hpf (0-5) H 06/20/23 16:40 Amorphous Sediment Not Reportable 06/20/23 16:40 Urine Bacteria Trace /hpf (NONE) 06/20/23 16:40 Urine Mucus 1+ /hpf 06/20/23 16:40 Discharge Plan Discharge Patient Disposition: Home Clinical Impression: Abdominal pain, recurrent, Colitis Condition: Stable Prescriptions: New dicyclomine 20 mg tablet 20 mg PO TID Qty: 14 0RF ondansetron 4 mg tablet,disintegrating 4 mg PO Q8H PRN (Reason: nausea and vomiting) 5 Days Qty: 14 0RF No Action albuterol sulfate [ProAir HFA] 90 mcg/actuation HFA aerosol inhaler 2 puff inhalation QID PRN (Reason: shortness of breath or wheezing) Qty: 8.5 6RF venlafaxine 75 mg capsule,extended release 24hr 75 mg PO DAILY Discharge Orders: Discharge ED (Routine); Ordered 06/20/23 Ordered By: Alejandro Maravilla Referrals: Nubia Timmons NP [Primary Care Provider] - 4-7 days (Follow-up nonspecific colitis, recurrent abdominal pain) Patient Instructions: Abdominal Pain (ED), Colitis (ED), Opioid Safety, Pain Management Activity Restrictions/Additional Instructions: You have a mild nonspecific thickening of your colon. This is referred to as colitis. There multiple different causes. You need to be very aware of your symptoms and plan to have a follow-up appointment. Monitor for fever, keep track of how many bowel movements you have per day, look for any bloody stool or mucus in the stool, palpate her abdomen for any areas of significant tenderness, and read the handout for more information. If you have any of these concerning symptoms, call your doctor or return to the ER for evaluation. Coding Level of Care Code ED English Language Learner Teacher for Tequila Moreno
[2023-06-20 16:45] LABS: Basophils % 0.2 %; Eosinophils # 0.9 10^3/uL (0.0-0.8); Eosinophils % 8.2 %; Hematocrit 42.7 % (36-47); Lymphocytes # 2.5 10^3/uL (0.8-4.8); Lymphocytes % 21.7 %; Mean Corpuscular HGB Conc 33.7 g/dL (30-55); Mean Platelet Volume 9.3 fL (7.4-10.4); Monocytes # 0.7 10^3/uL (0.2-0.9); Monocytes % 5.8 %; Neutrophils # 7.34 10^3/uL (1.8-7.7); Neutrophils % 63.9 %; Nucleated Red Blood Cells % 0 %; Platelet Count 319 10^3/cmm (157-399); Red Cell Distribution Width 12.6 % (12.1-15.1); White Blood Count 11.47 10^3/uL (3.29-11.43)
[2023-06-20 16:56] LABS: HCG Qualitative Urine. Negative (Negative)
[2023-06-20 17:01] LABS: Add Urine Culture? No; Add Urine Microscopic? YES; Bacteria Urine TRACE /hpf; Bilirubin Urine Neg (Negative); Blood Urine Neg (Negative); Glucose Urine UA Norm (Normal); Ketones Urine Negative (Negative); Leukocyte Esterase Urine 1+ (Negative); Mucus Urine 1+ /hpf; Nitrate Urine Negative (Negative); Protein Urine Neg (Negative); Specific Gravity, Urine 1.005 (1.005-1.030); Sulfosalicylic Acid Urine Negative (Negative); Urine Appearance Clear (CLEAR); Urine Color Straw (Yellow); Urobilinogen Urine Norm (Negative); pH Urine 8 (5-7)
--- NOTE | 2023-06-20 17:11 | CTR_ITS ---
PROCEDURE INFORMATION: Exam: CT Abdomen And Pelvis With Contrast Exam date and time: 06/20/2023 6:01 PM Age: 23 years old Clinical indication: Pain and abnormal findings; Abnormal lab test; Constipation and nausea and vomiting; Abdominal pain; Generalized; Patient HX: Abd pain with n/v and constipation. Elevated wbc. ; Additional info: Abd pain, vomiting, leukocytosis, constipation TECHNIQUE: Imaging protocol: Computed tomography of the abdomen and pelvis with contrast. Radiation optimization: All CT scans at this facility use at least one of these dose optimization techniques: automated exposure control; mA and/or kV adjustment per patient size (includes targeted exams where dose is matched to clinical indication); or iterative reconstruction. Contrast material: OMNI 350; Contrast volume: 100 ml; Contrast route: INTRAVENOUS (IV); REPORTING DATA: Count of CT and Cardiac NM exams in prior 12 months: This patient has received 0 known CTs and 0 known cardiac nuclear medicine studies in the 12 months prior to the current study. COMPARISON: CT abdomen pelvis w con* [id number] 01/04/2022 10:58 PM RADIATION DOSE METRICS: Total DLP (mGy-cm): 356.67 FINDINGS: Lungs: The lung bases appear unremarkable. Liver: The liver is unremarkable in appearance. Gallbladder and bile ducts: No calcified gallstones in the gallbladder. No gallbladder wall thickening. No pericholecystic fluid. No biliary dilatation. Pancreas: The pancreas is normal in appearance. No pancreatic duct dilatation. Spleen: No focal splenic lesion. No splenomegaly. Adrenal glands: The adrenal glands appear within normal limits. Kidneys and ureters: The kidneys are normal in morphology. No hydronephrosis. No solid mass. Stomach and bowel: No acute gastric abnormality demonstrated. The small bowel is unremarkable as demonstrated. Mild mural thickening noted of the colon, suspicious for nonspecific colitis. Appendix: No evidence of appendicitis. Intraperitoneal space: No pneumoperitoneum. No significant fluid collection. Vasculature: The aorta is unremarkable as demonstrated. Lymph nodes: No pathologically enlarged lymph nodes. Urinary bladder: The urinary bladder is unremarkable in appearance. Reproductive: Uterus and ovaries appear unremarkable. Bones/joints: No acute fracture or other acute osseous abnormality. Soft tissues: The soft tissues are unremarkable as demonstrated. CT/CT abdomen pelvis w con* [id number] IMPRESSION: 1. Mild mural thickening noted of the colon, suspicious for nonspecific colitis. This finding is new when compared to 01/04/2022. 2. No acute abnormality of the solid organs demonstrated.
[2023-06-20 17:22] LABS: Alanine Aminotransferase 8 U/L (0-33); Albumin Level 4.7 g/dL (3.5-5.2); Alkaline Phosphatase 65 U/L (35-105); Anion Gap 14.1 (5-19); Aspartate Amino Transferase 14 U/L (0-32); Blood Urea Nitrogen 9 mg/dL (6-20); Calcium 9.3 mg/dL (8.5-10.5); Carbon Dioxide 25 mmol/L (22-29); Chloride 102 mmol/L (98-107); Globulin 2.3 g/dL (1.3-4.6); Glomerular Filtration Rate 105.6 mL/min (90-130); Glucose 94 mg/dL (65-115); Osmolality Calculated 282 mOsm/kg (285-295); Potassium 4.1 mmol/L (3.5-5.1); Sodium 137 mmol/L (136-145); Total Bilirubin 0.3 mg/dL (0.15-1.2)
[2023-06-20] MEDS: iohexol 350 mg/mL 500 mL Btl (per mL) IV (18:09)
[2023-06-20] MEDS: morphine 4 mg/mL SDV 1 mL 2 MG IVP (19:04)
[2023-06-20] MEDS: dicyclomine 20 mg Tablet PO (19:04)
[2023-06-20 19:17] VITALS: BP 128/98; PULSE 80; RESP 16; O2SAT 96
== END 2023-06-20 19:16 | disposition home or self-care (01) ==
PROVIDERS: Emergency Provider Emergency Medicine; PCP Nurse Practitioner Family
DX: K52.9 Noninfective gastroenteritis and colitis, unspecified (principal); F17.290 Nicotine dependence, other tobacco product, uncomplicated
CPT/HCPCS: 74177; 80053; 81001; 81025; 85025; 86140; 96374; 96375; 99285; J1885; J2270; J2405; Q9967

== ENCOUNTER 2023-06-22 16:49 | Emergency (ER) | payer OTHER, SELFPAY ==
[2023-06-22 16:52] VITALS: BP 102/70; PULSE 89; RESP 18; TEMP 36.8; O2SAT 98; BMI 22.3
--- NOTE | 2023-06-22 19:25 | PC.NURSE ---
Patient to room with mother and friend. Sitting in bed. c/o 08/21 sharp/ dull abd pain. Resistant to questions.
--- NOTE | 2023-06-22 19:30 | ED_ITS ---
HPI - Nausea/Vomiting/Diarrhea General: Chief complaint: Nausea/Vomiting/Diarrhea Stated complaint: NV/rectal bleeding Time Seen by Provider: 06/22/23 19:08 History of Present Illness: Patient presents to the ER with complaints of nausea vomiting abdominal pain. Patient was seen on Thursday for the same thing she complained of constipation and possibly throwing up bowel contents. Patient had a complete work-up included lab work urine and a contrasted CT scan of the abdomen pelvis. The diagnosis and of being colitis per the record she declined antibiotics and was sent home with Bentyl and Zofran. Patient is back today saying these medicines did not work she has no resolution of her symptoms. Patient is states she has been working on this for 3-1/2 years she thinks is related to her Lyme disease and she thinks her PCP down in [facility] has referred her to a GI doctor but she is not for sure. Review of Systems General: Reports: 10 or more systems reviewed and unremarkable except in HPI and below PFSH ED PFSH: Medical History No significant past medical history Surgical History No significant past surgical history Social History Smoking and tobacco status: current every day smoker (vapes) Physical Exam Const: COMMON NORMALS: no acute distress, average body habitus, patient oriented x3, no limitations, healthy appearing, alert and well nourished HENMT: COMMON NORMALS: normocephalic, atraumatic, hearing grossly normal bilaterally, external ears normal, Normal external nose present and moist oral mucous membranes HEAD & SCALP: normocephalic and atraumatic NOSE: Normal external nose present EXTERNAL EAR: Yes external ears normal Eye: COMMON NORMALS: Equal, round and reactive pupils present, EOMs intact bilaterally, conjunctivae normal and no scleral icterus CONJUNCTIVA: Yes conjunctivae normal PUPIL: Yes Equal, round and reactive pupils present Neck/C-Spine: COMMON NORMALS: full ROM, no lymphadenopathy, supple, no meningeal signs, no JVD and Thyroid normal THYROID: Thyroid normal Lymph: LYMPHATIC: no lymphadenopathy noted Chest: COMMONS NORMALS: normal inspection of the chest and normal palpation of entire chest wall Resp: COMMON NORMALS: normal respiratory effort, No retractions, No use of accessory muscles and clear to auscultation bilaterally AUSCULTATION: clear to auscultation bilaterally Cardio: COMMON NORMALS: no JVD, regular rate, regular rhythm, S1 normal heart sound present, S2 normal heart sound present, No gallops present (Cardio), No clicks present (Cardio), No murmurs present (Cardio) and No rub (Cardio) RATE: regular rate RHYTHM: regular rhythm HEART SOUNDS: S1 normal heart sound present and S2 normal heart sound present GI: COMMON NORMALS: Normal to inspection, nondistended, normoactive bowel sounds present, Soft to palpation and No hepatosplenomegaly present; negative for non-tender (Diffusely tender to palpation no point tenderness) PALPATION: Yes Soft to palpation and Yes No hepatosplenomegaly present : COMMON NORMALS: Yes no CVA tenderness BLADDER/KIDNEY EXAM: Yes no CVA tenderness Back/Pelvis: COMMON NORMALS: no CVA tenderness Neuro: COMMON NORMALS: patient oriented x3 SENSORIUM/ORIENTATION: Yes alert MENINGEAL SIGNS: Yes no meningeal signs Course Vital Signs: Vital signs: Vital Signs Temperature 98.2 F 06/22/23 16:52 Pulse Rate 76 06/22/23 21:30 Respiratory Rate 16 06/22/23 21:30 Blood Pressure 112/67 06/22/23 21:30 Pulse Oximetry 100 06/22/23 21:30 Oxygen Delivery Me thod Room Air 06/22/23 21:30 MDM - Nausea/Vomiting/Diarrhea Medical Decision Making Patient presents to the ER with the same complaints that she did last time with nausea vomiting abdominal pain. Patient states she took the medicine from her last visit and is not working. Lab work and urine was obtained urine was mildly contaminated but did show 2+ leukocyte Estrace and 15-25 white blood cells. Patient will be treated with Cipro as an antibiotic for her urinary tract infection possibly and then her colitis also. Patient will be given meloxicam to go home on for pain. Patient should follow-up with her PCP for further evalu ation and testing possible referral to GI doctor for colonoscopy. Differential Diagnosis Unlikely traveler's diarrhea, food poisoning, gastroenteritis, clostridium difficile infection, drug-induced nausea and vomiting or dehydration Medical Records I reviewed the patient's medical records. Lab Data I reviewed the patient's lab results. 06/22/23 19:22 06/22/23 19: Laboratory Results WBC 10.65 10^3/uL (3.29-11.43) 06/22/23: RBC 4.34 10^6/uL (3.85-5.65) 06/22/23 19: Hgb 13.00 g/dL (11.27-16.99) 06/22/23: Hct 38.8 % (36-47) 06/22/23: MCV 89.4 fl (85-98) 06/22/23 19: MCH 30.0 pg (27-33) 06/22/23: MCHC 33.5 g/dL (30-55) 06/22/23: RDW 12.4 % (12.1-15.1) 06/22/23: Plt Count 294 10^3/cmm (157-399) 06/22/23: MPV 9.3 fL (7.4-10.4) 06/22/23 19: Neut % (Auto) 61.3 % 06/22/23 19: Lymph % (Auto) 23.8 % 06/22/23: [place] % (Auto) 5.8 % 06/22/23: Eos % (Auto) 8.5 % 06/22/23: Baso % (Auto) 0.2 % 06/22/23: Neut # (Auto) 6.52 10^3/uL (1.8-7.7) 06/22/23: Lymph # (Auto) 2.5 10^3/uL (0.8-4.8) 06/22/23: [place] # (Auto) 0.6 10^3/uL (0.2-0.9) 06/22/23: Eos # (Auto) 0.9 10^3/uL (0.0-0.8) H 06/22/23: Baso # (Auto) 0.0 10^3/uL (0.0-0.1) 06/22/23: Nucleated RBC % (auto) 0 % 06/22/23: Nucleated RBCs # 0.0 /100WBC 06/22/23 19:22 Sodium 138 mmol/L (136-145) 06/22/23 19:22 Potassium 4.1 mmol/L (3.5-5.1) 06/22/23 19:22 Chloride 106 mmol/L (98-107) 06/22/23 19:22 Carbon Dioxide 23 mmol/L (22-29) 06/22/23 19:22 Anion Gap 13.1 (5-19) 06/22/23 19:22 BUN 9 mg/dL (6-20) 06/22/23 19:22 Creatinine 0.7 mg/dL (0.5-0.9) 06/22/23 19:22 GFR Calculation 105.6 mL/min (90-130) 06/22/23 19:22 Glucose 90 mg/dL (65-115) 06/22/23 19:22 Calculated Osmolality 284 mOsm/kg (285-295) L 06/22/23 19:22 Calcium 8.8 mg/dL (8.5-10.5) 06/22/23 19:22 Total Bilirubin 0.3 mg/dL (0.15-1.2) 06/22/23 19:22 AST 14 U/L (0-32) 06/22/23 19:22 ALT 8 U/L (0-33) 06/22/23 19:22 Alkaline Phosphatase 58 U/L (35-105) 06/22/23 19:22 Total Protein 6.7 g/dL (6.6-8.7) 06/22/23 19:22 Albumin 4.8 g/dL (3.5-5.2) 06/22/23 19:22 Globulin 1.9 g/dL (1.3-4.6) 06/22/23 19:22 Urine Color Yellow (Yellow) 06/22/23 20:30 Urine Appearance Hazy (CLEAR) A 06/22/23 20:30 Urine pH 5 (5-7) 06/22/23 20:30 Ur Specific [place] 1.015 (1.005-1.030) 06/22/23 20:30 Urine Protein Neg (Negative) 06/22/23 20:30 Urine Glucose (UA) Norm (Normal) 06/22/23 20:30 Urine Ketones Negative (Negative) 06/22/23 20:30 Urine Blood Neg (Negative) 06/22/23 20:30 Urine Nitrate Negative (Negative) 06/22/23 20:30 Urine Bilirubin Neg (Negative) 06/22/23 20:30 Urine Urobilinogen Neg mg/dL (Negative) 06/22/23 20:30 Ur Leukocyte Esterase 2+ (Negative) H 06/22/23 20:30 Urine RBC None /hpf (0-2) 06/22/23 20:30 Urine WBC 15-25 /hpf (0-5) H 06/22/23 20:30 Ur Squamous Epith Cells 15-25 /hpf (0-5) H 06/22/23 20:30 Amorphous Sediment Not Reportable 06/22/23 20:30 Urine Bacteria 2+ /hpf (NONE) H 06/22/23 20:30 Urine Mucus 1+ /hpf 06/22/23 20:30 Discharge Plan Discharge Patient Disposition: Home Clinical Impression: Colitis, Acute UTI Condition: Stable Prescriptions: New ciprofloxacin HCl 500 mg tablet 500 mg PO BID Qty: 20 0RF meloxicam 7.5 mg tablet 7.5 mg PO BID PRN (Reason: pain ) Qty: 14 0RF No Action albuterol sulfate [ProAir HFA] 90 mcg/actuation HFA aerosol inhaler 2 puff inhalation QID PRN (Reason: shortness of breath or wheezing) Qty: 8.5 6RF venlafaxine 75 mg capsule,extended release 24hr 75 mg PO DAILY dicyclomine 20 mg tablet 20 mg PO TID Qty: 14 0RF ondansetron 4 mg tablet,disintegrating 4 mg PO Q8H PRN (Reason: nausea and vomiting) 5 Days Qty: 14 0RF Discharge Orders: Discharge ED (Routine); Ordered 06/22/23 Ordered By: Vitaliy Diaz Referrals: Nubia Timmons NP [Primary Care Provider] - 1 week Patient Instructions: Colitis (ED), Urinary Tract Infection - Women Activity Restrictions/Additional Instructions: Please follow-up with your family doctor within the next 7 days or sooner for further evaluation and treatment and possible referral for your chronic abdominal pain. Coding Level of Care Code ED Text Transcriber for Tequila Moreno
[2023-06-22 19:32] LABS: Basophils % 0.2 %; Eosinophils # 0.9 10^3/uL (0.0-0.8); Eosinophils % 8.5 %; Hematocrit 38.8 % (36-47); Lymphocytes # 2.5 10^3/uL (0.8-4.8); Lymphocytes % 23.8 %; Mean Corpuscular HGB Conc 33.5 g/dL (30-55); Mean Corpuscular Volume 89.4 fl (85-98); Mean Platelet Volume 9.3 fL (7.4-10.4); Monocytes # 0.6 10^3/uL (0.2-0.9); Monocytes % 5.8 %; Neutrophils # 6.52 10^3/uL (1.8-7.7); Neutrophils % 61.3 %; Nucleated Red Blood Cells % 0 %; Platelet Count 294 10^3/cmm (157-399); Red Blood Count 4.34 10^6/uL (3.85-5.65); Red Cell Distribution Width 12.4 % (12.1-15.1); White Blood Count 10.65 10^3/uL (3.29-11.43)
[2023-06-22 19:47] LABS: Alanine Aminotransferase 8 U/L (0-33); Albumin Level 4.8 g/dL (3.5-5.2); Alkaline Phosphatase 58 U/L (35-105); Anion Gap 13.1 (5-19); Aspartate Amino Transferase 14 U/L (0-32); Blood Urea Nitrogen 9 mg/dL (6-20); Calcium 8.8 mg/dL (8.5-10.5); Carbon Dioxide 23 mmol/L (22-29); Chloride 106 mmol/L (98-107); Globulin 1.9 g/dL (1.3-4.6); Glomerular Filtration Rate 105.6 mL/min (90-130); Glucose 90 mg/dL (65-115); Osmolality Calculated 284 mOsm/kg (285-295); Potassium 4.1 mmol/L (3.5-5.1); Sodium 138 mmol/L (136-145); Total Bilirubin 0.3 mg/dL (0.15-1.2); Total Protein 6.7 g/dL (6.6-8.7)
[2023-06-22] MEDS: ketorolac 30 mg/mL INJ IVP (20:19)
[2023-06-22] MEDS: albuterol 2.5 mg/3 mL Neb INHALATION (20:30)
[2023-06-22 20:31] VITALS: PULSE 78; RESP 18; O2SAT 99
[2023-06-22 20:41] VITALS: BP 106/52; PULSE 77; RESP 16; O2SAT 100
[2023-06-22 20:56] LABS: Add Urine Microscopic? YES; Bilirubin Urine Neg (Negative); Blood Urine Neg (Negative); Glucose Urine UA Norm (Normal); Ketones Urine Negative (Negative); Leukocyte Esterase Urine 2+ (Negative); Nitrate Urine Negative (Negative); Protein Urine Neg (Negative); Specific Gravity, Urine 1.015 (1.005-1.030); Urine Appearance Hazy (CLEAR); Urine Color Yellow (Yellow); Urobilinogen Urine Neg (Negative); pH Urine 5 (5-7)
[2023-06-22 20:57] LABS: Add Urine Culture? No; Bacteria Urine 2+ /hpf; Mucus Urine 1+ /hpf; Squamous Epithelial Cell Urine 15-25 /hpf (0-5); WBC Urine 15-25 /hpf (0-5)
[2023-06-22] MEDS: orphenadrine 30 mg/mL Inj 2 mL 60 MG IVP (21:29)
[2023-06-22 21:30] VITALS: BP 112/67; PULSE 76; RESP 16; O2SAT 100
--- NOTE | 2023-06-22 21:30 | PC.NURSE ---
Toradol did not help pain at all. Pt requesting more pain medication. Rates 07/21. Provider placed orders for Norflex.
[2023-06-22] MEDS: ciprofloxacin 500 mg Tablet PO (21:49)
[2023-06-22] MEDS: ondansetron 2 mg/ML SDV 2 mL 4 MG IVP (21:49)
[2023-06-22 21:52] VITALS: PULSE 73; RESP 16; O2SAT 100
== END 2023-06-22 22:01 | disposition home or self-care (01) ==
PROVIDERS: Emergency Provider Emergency Medicine; PCP Nurse Practitioner Family
DX: K52.9 Noninfective gastroenteritis and colitis, unspecified (principal); N39.0 Urinary tract infection, site not specified; F17.290 Nicotine dependence, other tobacco product, uncomplicated
CPT/HCPCS: 80053; 81001; 85025; 94640; 96374; 96375; 99284; J1885; J2360; J2405; J7613

== ENCOUNTER → 2023-10-30 13:19 | Outpatient (BNVA) | payer MEDICAID, SELFPAY | PROVIDERS: PCP Nurse Practitioner Family; Visit Provider Family Medicine | DX: N91.2 Amenorrhea, unspecified (principal) | CPT/HCPCS: 81025 ==

== ENCOUNTER → 2023-11-11 13:18 | Outpatient (BNVA) | payer MEDICAID, SELFPAY | PROVIDERS: PCP Nurse Practitioner Family; Visit Provider Family Medicine | DX: N91.2 Amenorrhea, unspecified (principal) | CPT/HCPCS: 81000; 81025 ==

== ENCOUNTER 2024-02-15 18:17 | Emergency (ER) | payer SELFPAY ==
--- NOTE | 2024-02-15 18:24 | USR_ITS ---
PROCEDURE INFORMATION: Exam: US , Limited Exam date and time: 02/15/2024 7:02 PM Age: 23 years old Clinical indication: complicated by abdominal or pelvic pain; Generalized abdominal pain; Second trimester (14 weeks 0 days to 27 weeks 6 days); Gestational age or lmp: 18w 4 d by u/s today. ; Patient HX: G3-p0-a2-l0 no vaginal bleeding. ; Additional info: Cramping LABS AND CLINICAL REPORTS: Choriogonadotropin in serum (Serum HCG): 57135 mIU/mL Last menstrual period start date: 10/04/2023 Gestational age (Established): 19 w 0 d Estimated due date (Established): 07/11/2024 TECHNIQUE: Imaging protocol: Real-time ultrasound of the maternal uterus with image documentation. Exam focused on the clinical indication. COMPARISON: CT abdomen pelvis w con* [id number] 06/20/2023 6:01 PM FINDINGS: Gestation: Single live intrauterine heart rate: 167 bpm presentation and position: Cephalic Placenta: Posterior grade 0 placenta without previa. Placenta is low-lying with its edge 2.7 cm from the internal os of the cervix. Amniotic fluid (Qualitative): Amniotic fluid volume is normal. Amniotic fluid index: YUE is 11.23 cm. ANATOMY: midline falx: midline falx is normal. cerebellum: cerebellum is normal. lateral ventricles: lateral ventricles are normal. cisterna magna: cisterna magna is normal. choroid plexus: choroid plexus is normal. face: facial profile is normal. upper lip and nose are normal. situs: situs is normal. heart four-chamber view, heart size and position: heart four-chamber view, size, and position are normal. kidneys: kidneys are normal. stomach: stomach is normal. urinary bladder: bladder is normal. spine axial view: No visualized abnormalities of spine. Umbilical cord and insertion: umbilical cord insertion site into the abdomen is normal. 3-vessel umbilical cord extremities: No visualized abnormalities of arms/hands. No visualized abnormalities of legs/feet. BIOMETRY: Gestational age (AUA): 18 w 4 d Estimated due date (AUA): 07/14/2024 Estimated weight: 245.25 g. EFW by AC, BPD, FL, HC, [place]lock 1985 21.5 percentile Biparietal diameter (BPD): 4.21 cm. EGA (BPD) is 18 w 5 d. 39.3 % percentile Head circumference (HC): 15.75 cm. EGA (HC) is 18 w 4 d. 25.4 % percentile Abdominal circumference (AC): 12.46 cm. EGA (AC) is 18 w 1 d. 18 % percentile Femur length (FL): 2.93 cm. EGA (FL) is 19 w 0 d. 44 % percentile Cephalic index (CI): 76.55. (Normal range: 70 - 86) HC/AC: 1.26. (Normal range: 1.09 - 1.27) FL/HC: 18.6. (Normal range: 15.97 - 18.17) FL/BPD: 69.6 FL/AC: 23.52 MATERNAL: Cervix: Cervical length measures 4.9 cm. US/US OB >= 14 weeks fetus [id number] IMPRESSION: 1. Single live intrauterine of approximately 18 weeks 4 days gestational age. 2. Low-lying placenta
[2024-02-15 18:27] VITALS: BP 114/68; PULSE 104; RESP 18; TEMP 36.4; O2SAT 95; BMI 34.0
--- NOTE | 2024-02-15 18:31 | ED_ITS ---
HPI - 2 General: Chief complaint: Abdominal Pain Stated complaint: 18 Wks Preg\Cramps Time Seen by Provider: 02/15/24 18:22 History of Present Illness: 23-year-old female who is approximately 18 weeks who presents the emergency room with abdominal cramping. She is having cramps in her lower abdomen and to the sides of her uterus bilaterally. She has had no vaginal discharge. No vaginal bleeding. No fevers. No nausea or vomiting. No shortness of breath. No chest pain. Review of Systems 2 Narrative: Constitutional symptoms: Negative except as documented in HPI. Skin symptoms: Negative except as documented in HPI. Eye symptoms: Negative except as documented in HPI. ENMT symptoms: Negative except as documented in HPI. Respiratory symptoms: Negative except as documented in HPI. Cardiovascular symptoms: Negative except as documented in HPI. Gastrointestinal symptoms: Negative except as documented in HPI. Genitourinary symptoms: Negative except as documented in HPI. Musculoskeletal symptoms: Negative except as documented in HPI. Neurologic symptoms: Negative except as documented in HPI. Psychiatric symptoms: Negative except as documented in HPI. Endocrine symptoms: Negative except as documented in HPI. PFSH ED 2 PFSH: Medical History No significant past medical history Surgical History No significant past surgical history Social History Smoking and tobacco/nicotine status: current every day tobacco/nicotine user (vapes) Physical Exam 2 Narrative: EXAM NARRATIVE: General: Alert, no acute distress. Skin: Warm, dry. Head: Normocephalic, atraumatic. Neck: Supple, trachea midline. Eye: Extraocular movements are intact. Ears, nose, mouth and throat: mucosa moist. Cardiovascular: Regular, Normal peripheral perfusion. Respiratory: Lungs are clear to auscultation, respirations are non-labored, breath sounds are equal, Symmetrical chest wall expansion. Gastrointestinal: Soft, Nontender, Non distended, Normal bowel sounds. Musculoskeletal: Normal ROM, no deformity. Neurological: Alert and oriented, No focal neurological deficit observed. Psychiatric: Cooperative, appropriate mood & affect. Course 2 Vital Signs: Vital signs: Vital Signs Temperature 97.6 F 02/15/24 18:27 Pulse Rate 95 05/06/24 18:58 Respiratory Rate 18 02/15/24 18:27 Blood Pressure 134/72 02/15/24 18:58 Pulse Oximetry 98 02/15/24 18:58 Oxygen Delivery Me thod Room Air 02/15/24 18:58 MDM - OB/Uterine Contractions Medical Decision Making Medical decision making: Differential diagnosis including but not limited to and based on the above HPI, review of systems and physical exam: Patient is approximately 18 weeks with cramping. Concern would be for UTI so urinalysis was ordered. Ultrasound OB was ordered. Basic lab work and an hCG quant were ordered. Orders placed to evaluate differential diagnosis based on the above differential, HPI and physical exam Lab Review: Laboratory results were reviewed and interpreted by myself the emergency room physician. Patient has a bit of a white count of 18,000. BUN and creatinine are 11 and 0.5. Glucose is 92. Her bicarb is only 17 no ketones in her urine. Her urine does appear infected. I reviewed the patient's medical record. OB ultrasound Gestation: Single live intrauterine heart rate: 167 bpm presentation and position: Cephalic Placenta: Posterior grade 0 placenta without previa. Placenta is low-lying with its edge 2.7 cm from the internal os of the cervix. Amniotic fluid (Qualitative): Amniotic fluid volume is normal. Amniotic fluid index: YUE is 11.23 cm. ANATOMY: midline falx: midline falx is normal. cerebellum: cerebellum is normal. lateral ventricles: lateral ventricles are normal. cisterna magna: cisterna magna is normal. choroid plexus: choroid plexus is normal. face: facial profile is normal. upper lip and nose are normal. situs: situs is normal. heart four-chamber view, heart size and position: heart four-chamber view, size, and position are normal. kidneys: kidneys are normal. stomach: stomach is normal. urinary bladder: bladder is normal. spine axial view: No visualized abnormalities of spine. Umbilical cord and insertion: umbilical cord insertion site into the abdomen is normal. 3-vessel umbilical cord extremities: No visualized abnormalities of arms/hands. No visualized abnormalities of legs/feet. BIOMETRY: Gestational age (AUA): 18 w 4 d Estimated due date (AUA): 07/14/2024 Estimated weight: 245.25 g. EFW by AC, BPD, FL, HC, [place] 1985 21.5 percentile Biparietal diameter (BPD): 4.21 cm. EGA (BPD) is 18 w 5 d. 39.3 % percentile Head circumference (HC): 15.75 cm. EGA (HC) is 18 w 4 d. 25.4 % percentile Abdominal circumference (AC): 12.46 cm. EGA (AC) is 18 w 1 d. 18 % percentile Femur length (FL): 2.93 cm. EGA (FL) is 19 w 0 d. 44 % percentile Cephalic index (CI): 76.55. (Normal range: 70 - 86) HC/AC: 1.26. (Normal range: 1.09 - 1.27) FL/HC: 18.6. (Normal range: 15.97 - 18.17) FL/BPD: 69.6 FL/AC: 23.52 MATERNAL: Cervix: Cervical length measures 4.9 cm. IMPRESSION: 1. Single live intrauterine of approximately 18 weeks 4 days gestational age. 2. Low-lying placenta Reexamination: Patient remained stable. She has had no vaginal bleeding. No increased work of breathing. No altered mental status. Assessment and plan: Urinary tract infection Normal 18-week - heart rate is 167. Normal 18-week . -IV Rocephin in the emergency room. - Discharged home - Discussed findings and plan with patient. Answered any questions. - All laboratory values were reviewed and interpreted personally by myself, the ER physician - All imaging was reviewed and interpreted personally by myself, the ER physician. - Evaluation and treatment of this problem were appropriate in the emergency setting Lab Data 02/15/24 18:35 02/15/24 18:35 Radiology Impressions Ultrasound 02/15/24 18:24 IMPRESSION: 1. Single live intrauterine of approximately 18 weeks 4 days gestational age. 2. Low-lying placenta Laboratory Results WBC 17.95 10^3/uL (3.29-11.43) H 02/15/24 18:35 RBC 3.97 10^6/uL (3.85-5.65) 02/15/24 18:35 Hgb 11.50 g/dL (11.27-16.99) 02/15/24 18:35 Hct 35.2 % (36-47) L 02/15/24 18:35 MCV 88.7 fl (85-98) 02/15/24 18:35 MCH 29.0 pg (27-33) 02/15/24 18:35 MCHC 32.7 g/dL (30-55) 02/15/24 18:35 RDW 13.4 % (12.1-15.1) 02/15/24 18:35 Plt Count 330 10^3/cmm (157-399) 02/15/24 18:35 MPV 10.2 fL (7.4-10.4) 02/15/24 18:35 Neut % (Auto) 74.5 % 02/15/24 18:35 Lymph % (Auto) 12.1 % 02/15/24 18:35 [place] % (Auto) 5.8 % 02/15/24 18:35 Eos % (Auto) 6.6 % 02/15/24 18:35 Baso % (Auto) 0.3 % 02/15/24 18:35 Neut # (Auto) 13.38 10^3/uL (1.8-7.7) H 02/15/24 18:35 Lymph # (Auto) 2.2 10^3/uL (0.8-4.8) 02/15/24 18:35 [place] # (Auto) 1.0 10^3/uL (0.2-0.9) H 02/15/24 18:35 Eos # (Auto) 1.2 10^3/uL (0.0-0.8) H 02/15/24 18:35 Baso # (Auto) 0.1 10^3/uL (0.0-0.1) 02/15/24 18:35 Nucleated RBC % (auto) 0 % 02/15/24 18:35 Nucleated RBCs # 0.0 /100WBC 02/15/24 18:35 Sodium 137 mmol/L (136-145) 02/15/24 18:35 Potassium 3.8 mmol/L (3.5-5.1) 02/15/24 18:35 Chloride 106 mmol/L (98-107) 02/15/24 18:35 Carbon Dioxide 17 mmol/L (22-29) L 02/15/24 18:35 Anion Gap 17.8 (5-19) 02/15/24 18:35 BUN 11 mg/dL (6-20) 02/15/24 18:35 Creatinine 0.5 mg/dL (0.5-0.9) 02/15/24 18:35 GFR Calculation 155.7 mL/min (90-130) H 02/15/24 18:35 Glucose 92 mg/dL (65-115) 02/15/24 18:35 Calculated Osmolality 283 mOsm/kg (285-295) L 02/15/24 18:35 Calcium 8.8 mg/dL (8.5-10.5) 02/15/24 18:35 Total Bilirubin 0.2 mg/dL (0.15-1.2) 02/15/24 18:35 AST 14 U/L (0-32) 02/15/24 18:35 ALT 11 U/L (0-33) 02/15/24 18:35 Alkaline Phosphatase 70 U/L (35-105) 02/15/24 18:35 Total Protein 6.8 g/dL (6.6-8.7) 02/15/24 18:35 Albumin 3.7 g/dL (3.5-5.2) 02/15/24 18:35 Globulin 3.1 g/dL (1.3-4.6) 02/15/24 18:35 Ser , Semi-Qnt 98146.00 mIU/mL 02/15/24 18:35 Urine Color Light yellow (Yellow) 02/15/24 19:37 Urine Appearance Sl hazy (CLEAR) A 02/15/24 19:37 Urine pH 6 (5-7) 02/15/24 19:37 Ur Specific [place] 1.010 (1.005-1.030) 02/15/24 19:37 Urine Protein Neg (Negative) 02/15/24 19:37 Urine Glucose (UA) Norm (Normal) 02/15/24 19:37 Urine Ketones Negative (Negative) 02/15/24 19:37 Urine Blood Neg (Negative) 02/15/24 19:37 Urine Nitrate Negative (Negative) 02/15/24 19:37 Urine Bilirubin Neg (Negative) 02/15/24 19:37 Urine Urobilinogen Norm mg/dL (Negative) 02/15/24 19:37 Ur Leukocyte Esterase 2+ (Negative) H 02/15/24 19:37 Urine RBC None /hpf (0-2) 02/15/24 19:37 Urine WBC 25-40 /hpf (0-5) H 02/15/24 19:37 Ur Squamous Epith Cells 5-10 /hpf (0-5) H 02/15/24 19:37 Amorphous Sediment Not Reportable 02/15/24 19:37 Urine Bacteria Trace /hpf (NONE) 02/15/24 19:37 Blood Type O Positive 02/15/24 18:35 Rho(D) Type Rh positive 02/15/24 18:35 All radiology interpretation(s) finalized by discharge Discharge Plan Discharge Patient Disposition: Home Clinical Impression: Urinary tract infection Qualifiers: Weeks of gestation: less than 8 weeks Qualified Code(s): Z3A.01 - Less than 8 weeks gestation of Condition: Stable Prescriptions: New cefdinir 300 mg capsule 300 mg PO BID 5 Days Qty: 10 0RF No Action albuterol sulfate [ProAir HFA] 90 mcg/actuation HFA aerosol inhaler 2 puff inhalation QID PRN (Reason: shortness of breath or wheezing) Qty: 8.5 6RF PNV #[id number]-dha 35 mg iron-5 mg iron-1 mg capsule 1 cap PO DAILY 90 Days Qty: 90 1RF Discharge Orders: Discharge ED (Routine); Ordered 02/15/24 Ordered By: Cristel Nunez Referrals: Nubia Timomns NP [Primary Care Provider] - Discharge Diet: Usual diet Discharge Activity: Resume usual activity Patient Instructions: Urinary Tract Infection in (ED), at 19 to 22 Weeks (ED) Coding Level of Care Code ED Event Specialist for Tequila Moreno
[2024-02-15 18:50] LABS: Basophils # 0.1 10^3/uL (0.0-0.1); Basophils % 0.3 %; Eosinophils # 1.2 10^3/uL (0.0-0.8); Eosinophils % 6.6 %; Hematocrit 35.2 % (36-47); Lymphocytes # 2.2 10^3/uL (0.8-4.8); Lymphocytes % 12.1 %; Mean Corpuscular HGB Conc 32.7 g/dL (30-55); Mean Corpuscular Volume 88.7 fl (85-98); Mean Platelet Volume 10.2 fL (7.4-10.4); Monocytes % 5.8 %; Neutrophils # 13.38 10^3/uL (1.8-7.7); Neutrophils % 74.5 %; Nucleated Red Blood Cells % 0 %; Platelet Count 330 10^3/cmm (157-399); Red Blood Count 3.97 10^6/uL (3.85-5.65); Red Cell Distribution Width 13.4 % (12.1-15.1); White Blood Count 17.95 10^3/uL (3.29-11.43)
[2024-02-15 18:58] VITALS: BP 134/72; PULSE 95; O2SAT 98
[2024-02-15 19:14] LABS: Alanine Aminotransferase 11 U/L (0-33); Albumin Level 3.7 g/dL (3.5-5.2); Alkaline Phosphatase 70 U/L (35-105); Anion Gap 17.8 (5-19); Aspartate Amino Transferase 14 U/L (0-32); Blood Urea Nitrogen 11 mg/dL (6-20); Calcium 8.8 mg/dL (8.5-10.5); Carbon Dioxide 17 mmol/L (22-29); Chloride 106 mmol/L (98-107); Globulin 3.1 g/dL (1.3-4.6); Glomerular Filtration Rate 155.7 mL/min (90-130); Glucose 92 mg/dL (65-115); Osmolality Calculated 283 mOsm/kg (285-295); Potassium 3.8 mmol/L (3.5-5.1); Sodium 137 mmol/L (136-145); Total Bilirubin 0.2 mg/dL (0.15-1.2); Total Protein 6.8 g/dL (6.6-8.7)
[2024-02-15 20:27] LABS: Bilirubin Urine Neg (Negative); Blood Urine Neg (Negative); Glucose Urine UA Norm (Normal); Ketones Urine Negative (Negative); Leukocyte Esterase Urine 2+ (Negative); Nitrate Urine Negative (Negative); Protein Urine Neg (Negative); Urine Appearance SL Hazy (CLEAR); Urine Color Light yellow (Yellow); Urobilinogen Urine Norm (Negative); pH Urine 6 (5-7)
[2024-02-15 20:28] LABS: Add Urine Culture? Yes; Bacteria Urine TRACE /hpf; WBC Urine 25-40 /hpf (0-5)
[2024-02-15] MEDS: cefTRIAXone 1,000 MG in sodium chloride 0.9% (plus) 50 ML 100 MG IV (20:45)
[2024-02-15 21:11] VITALS: BP 134/72; PULSE 95; RESP 18; TEMP 36.4; O2SAT 98
== END 2024-02-15 21:19 | disposition home or self-care (01) ==
PROVIDERS: Emergency Provider Emergency Medicine; PCP Nurse Practitioner Family
DX: O23.42 Unspecified infection of urinary tract in pregnancy, second trimester (principal); N39.0 Urinary tract infection, site not specified; O99.332 Smoking (tobacco) complicating pregnancy, second trimester; F17.290 Nicotine dependence, other tobacco product, uncomplicated; Z3A.18 18 weeks gestation of pregnancy
CPT/HCPCS: 76805; 80053; 81001; 84702; 85025; 86900; 87086; 96365; 99284; J0696